=== PATIENT | male | born 1955 | race Caucasian/White ===

== ENCOUNTER → 2018-08-03 | Outpatient (CLI) | payer MEDICARE, BC ==
--- NOTE | 2018-08-03 09:46 | US ---
EXAMINATION TYPE: US duplex aorta DATE OF EXAM: 08/03/2018 COMPARISON: NONE CLINICAL HISTORY: AAA Z13.9. EXAM MEASUREMENTS: Abdominal Aorta: Proximal: 1.9cm Mid: 2.1cm Distal: 1.8cm Bifurcation: 1.1cm 1cm Small portion of proximal obscured by overlying bowel gas. Large left kidney cyst noted measuring 8.8 x 8.9 cm IMPRESSION: 1. A portion of the proximal aorta is obscured by bowel gas. Remaining portions measure within normal limits for size with no diagnostic evidence of aneurysm. 2. Large left renal cyst.
== END ==
LOC: RADUSWWP 08:12
PROVIDERS: ATTEND Family Medicine
DX: N28.1 Cyst of kidney, acquired (principal)
CPT/HCPCS: 93979

== ENCOUNTER → 2018-09-14 | Outpatient (CLI) | payer MEDICARE, BC ==
--- NOTE | 2018-09-14 21:23 | CONS ---
CONSULTATION ADDENDUM TO CONSULTATION: DATE OF SERVICE: 09/14/2018 I checked the patient's CPAP unit. CPAP pressure is 11 cm of water. Usage is 100% of nights, and 29/30 nights for more than 4 hours. Average usage is 7.3 hours for the last month. For the last year, usage is 336/365 nights for more than 4 hours, which is good compliance. Pressure is 11 cm of water. Apnea-hypopnea index reading for the whole year is only 3.5, which is within normal range. For the year, highest leak factor was 52 L/minute, but for the last month, leak is 35 L/minute, which is acceptable. Humidifier is at the level of 3. Possibly the humidifier does not work. PLAN: CPAP unit has to be checked, fixed or replaced. MMODL / IJN: [id number] /
--- NOTE | 2018-09-14 21:29 | CONS ---
CONSULTATION DATE OF SERVICE: 09/14/2018 63-year-old gentleman who has [facility] for obstructive sleep apnea-hypopnea syndrome. HISTORY OF PRESENT ILLNESS/SLEEP WAKE EVALUATION: The patient has history of obstructive sleep apnea for about 10 years. Last sleep study was done in 2014. The patient continued to use his CPAP equipment successfully every night for the whole night. Recently, he developed some problems with the humidifier in his CPAP unit. SLEEP SCHEDULE: He is a usual sleep schedule from 10 p.m. to 6 a.m. basically 7 days a week. FALLING ASLEEP: No problems with falling asleep. No TV in bedroom. DURING SLEEP: He usually sleeps on the side position. According to his family, he does not snore with the usage of the CPAP. He wakes up once at night with nocturia. DURING THE DAY/SLEEP WAKE EVALUATION: No significant excessive daytime sleepiness. Normal Sleepiness Scale is 3. Maintenance of wakefulness test in the past, was normal passed the test. PAST MEDICAL HISTORY: Positive for hypertension, diabetes mellitus, acid reflux, coronary artery disease, hyperlipidemia. PAST SURGICAL HISTORY: Stent insertion to coronary arteries in 2008, back surgery 2003. MEDICATIONS: Lisinopril, hydrochlorothiazide, omeprazole, Cialis, atorvastatin, metformin, metoprolol, glimepiride, aspirin, fish oil. SOCIAL HISTORY: Negative for smoking or using alcohol. FAMILY HISTORY: Headaches, cancer, diabetes, hypertension, heart problems, hyperlipidemia. REVIEW OF SYSTEMS: Mostly negative. No significant amount of awakenings from sleep. No snoring. No sleepiness during the day. PHYSICAL EXAM: gentleman without distress. BP 115/79, HR 66, RR 16, height 6 feet 1 inch, weight 220 pounds, BMI 29, temperature 98.0, oxygen saturation at room air 94%. HEENT: Oropharynx extremely low position of soft palate, Mallampati 4, wide neck is 17 inches in circumference. Neck Supple, no JVD. Thyroid is not palpable. LUNGS Clear to percussion and to auscultation. Good air exchange. No wheezing or rhonchi. HEART S1, S2 regular. No murmurs, gallops, or rubs. ABDOMEN: Soft and nontender. Bowel sounds are present. No organomegaly appreciated. EXTREMITIES No clubbing or cyanosis. MEMBERSHIP SECRETARY Awake, alert, and oriented X3. Cranial nerves 2 to 7 intact. There is no fasciculation or atrophy. noted. No focal deficits observed. IMPRESSION: 1. Obstructive sleep apnea-hypopnea syndrome for many years. The patient continued to use CPAP equipment every night. Demonstrated great compliance with treatment, benefitting from treatment. Normal respiration by the reading of apnea-hypopnea index from the machine. Low position of soft palate. Wide neck. 2. Hypertension. 3. Coronary artery disease, status post stent insertion. 4. Diabetes mellitus. 5. Acid reflux. 6. Hyperlipidemia. PLAN: 1. Patient will continue to use CPAP equipment every night for the whole night. 2. Watching weight. 3. Prescription for all necessary CPAP supplies. The patient needs to replace heated humidifier in his unit. 4. Precautions related to driving. No driving if feeling sleepiness. 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 He is aware about civil and criminal liability for unsafe driving. Thank you very much for allowing me to participate in management of your patient. Sincerely, Romel Peguero MD, PhD, FAASM Diplomat of [place] M[employer] T[employer] [facility] [place] MMODL / FIORDALIZAN: [id number] /
== END | disposition home or self-care (01) ==
LOC: SLEEP 14:50
PROVIDERS: ATTEND Internal Medicine
DX: G47.33 Obstructive sleep apnea (adult) (pediatric) (principal); R35.1 Nocturia; I10 Essential (primary) hypertension; I25.10 Atherosclerotic heart disease of native coronary artery without angina pectoris; E11.9 Type 2 diabetes mellitus without complications; K21.9 Gastro-esophageal reflux disease without esophagitis; E78.5 Hyperlipidemia, unspecified; Z79.84 Long term (current) use of oral hypoglycemic drugs; Z99.89 Dependence on other enabling machines and devices; Z95.5 Presence of coronary angioplasty implant and graft; Z79.82 Long term (current) use of aspirin; Z79.899 Other long term (current) drug therapy
CPT/HCPCS: 99211

== ENCOUNTER 2019-10-20 09:34 | Inpatient (IN) | payer MEDICARE, BC ==
[2019-10-20] MEDS ORDERED: KETOROLAC 60 MG/2 ML VIAL IM STA (10:07)
[2019-10-20] MEDS ORDERED: DEXAMETHASONE SOD PHOSPHATE 10 MG/ML 1 ML VIAL IM STA (10:07)
[2019-10-20] MEDS ORDERED: ORPHENADRINE 30 MG/ML 2 ML VIAL IM STA (10:07)
[2019-10-20] MEDS ORDERED: RX INFO: IV CONTRAST WAS GIVEN 1 EACH MISC MISCELLANE PRN (10:18)
--- NOTE | 2019-10-20 10:26 | ED ---
Extremity Problem HPI - General Source: patient, RN notes reviewed, old records reviewed Mode of arrival: ambulatory Limitations: no limitations <Hanna Hawley - Last Filed: 10/20/19 13:49> <Renae Jernigan - Last Filed: 10/21/19 01:18> - General Chief complaint: Extremity Problem,Nontraumatic Stated complaint: left leg numbness Time Seen by Provider: 10/20/19 09:44 - History of Present Illness Initial comments: Patient is a 64-year-old male process returns today with left leg pain. Reports that shooting down the left leg into the foot. Initially thought it was related to a foot cramp her leg muscle cramp. He reports that it seemed that his foot was numb and he couldn't feel it. Patient reports that happened yesterday around 11:30 at night. He went to bed after the pain subsided. Patient states that he then was walking to get the paper and felt that his leg became more numb and worsening pain at that time and decided to come to the ER. Patient reports that while he's been reclining in the bed and his pain has diminished. Patient has a history of hypertension diabetes and previous MS. (Hanna Hawley) - Related Data Home Medications Medication Instructions Recorded Confirmed Ascorbic Acid [Vitamin C] 500 mg PO HS 10/20/19 10/20/19 Aspirin EC [Ecotrin Low Dose] 81 mg PO HS 10/20/19 10/20/19 Atorvastatin [Lipitor] 40 mg PO HS 10/20/19 10/20/19 Glimepiride [Amaryl] 1 mg PO BID-W/MEALS 10/20/19 10/20/19 Krill/Ralph-3/Dha/Epa/Lipids 1 cap PO DAILY 10/20/19 10/20/19 [Krill Oil 350 mg Softgel] Lisinopril-Hctz 20-12.5 mg 1 tab PO DAILY 10/20/19 10/20/19 [Zestoretic 20-12.5] Metoprolol Tartrate 25 mg PO BID 10/20/19 10/20/19 Multivit-Min/FA/Lycopen/Lutein 1 tab PO DAILY 10/20/19 10/20/19 [Centrum Silver Men Tablet] Omeprazole 20 mg PO DAILY 10/20/19 10/20/19 metFORMIN HCL 1,000 mg PO BID 10/20/19 10/20/19 Allergies Allergy/AdvReac Type Severity Reaction Status Date / Time No Known Allergies Allergy Verified 10/20/19 13:45 Review of Systems ROS Other: All systems not noted in ROS Statement are negative. <Hanna Hawley - Last Filed: 10/20/19 13:49> ROS Other: All systems not noted in ROS Statement are negative. <Renae Jernigan Shakir - Last Filed: 10/21/19 01:18> ROS Statement: Those systems with pertinent positive or pertinent negative responses have been documented in the HPI. Past Medical History Past Medical History: Hyperlipidemia, Hypertension, Myocardial Infarction (MS) History of Any Multi-Drug Resistant Organisms: None Reported Past Surgical History: Back Surgery Past Psychological History: No Psychological Hx Reported Smoking Status: Never smoker Past Alcohol Use History: None Reported Past Drug Use History: None Reported <Hanna Hawley - Last Filed: 10/20/19 13:49> General Exam Limitations: no limitations General appearance: alert, in no apparent distress Head exam: Present: atraumatic, normocephalic, normal inspection Eye exam: Present: normal appearance, PERRL, EOMI. Absent: scleral icterus, conjunctival injection, periorbital swelling ENT exam: Present: normal exam, mucous membranes moist Neck exam: Present: normal inspection. Absent: tenderness, meningismus, lymphadenopathy Respiratory exam: Present: normal lung sounds bilaterally. Absent: respiratory distress, wheezes, rales, rhonchi, stridor Cardiovascular Exam: Present: regular rate, normal rhythm, normal heart sounds. Absent: systolic murmur, diastolic murmur, rubs, gallop, clicks GI/Abdominal exam: Present: soft, normal bowel sounds. Absent: distended, tenderness, guarding, rebound, rigid Extremities exam: Present: normal inspection, full ROM, normal capillary refill, other (Patient's left lower extremity is cool to touch. Unable to auscultate dorsalis pedis and posterior tibial pulse on Doppler ultrasound on the left lower extremity. This is easily obtained on the right.). Absent: tenderness, pedal edema, joint swelling, calf tenderness Back exam: Present: normal inspection Neurological exam: Present: alert, oriented X3, CN II-XII intact Psychiatric exam: Present: normal affect, normal mood Skin exam: Present: warm, dry, intact, normal color. Absent: rash <MariseljosejanaeHanna - Last Filed: 10/20/19 13:49> - General Exam Comments Initial Comments: 64-year-old male. Alert and oriented 3. (NorahHanna cardoso) Course Vital Signs 10/20/19 09:38 Temperature 98 F Pulse Rate 67 Respiratory 18 Rate Blood Pressure 116/79 O2 Sat by Pulse 100 Oximetry Medical Decision Making - Lab Data Result diagrams: 10/20/19 10:25 10/20/19 10:25 <NorahHanna cardoso - Last Filed: 10/20/19 13:49> - Lab Data Result diagrams: 10/21/19 00:24 10/20/19 16:48 <Renae Jernigan - Last Filed: 10/21/19 01:18> - Medical Decision Making Patient is a pleasant 64-year-old male who presents emergency department today with left leg pain starting at 11:00 last night numbness and tingling to left leg. He reports that the pain seemed to be intermittent. And when he was walking to the get the paper today the pain became more severe. Exam he does have a slightly cooler left lower extremity compared to the right. Unable to p alpate or auscultate a Doppler pulse and dorsalis pedis or posterior tibial pulse on the left leg. These are easily palpated and heard on the right leg. With the concern for decreased pulse Patient went to CT MANUEL of the lower extremity. There is evidence of femoral artery occlusion with collateral vessel development. He does have somewhat diminished capillary refill and the inhaler left lower extremity. At this time Patient started on IV heparin and we [place] That Dr. Dukes. Recommended Admission with Heparin Drip and ABIs Will Be Completed. Patient Will Be Admitted to Medicine with Consult to Dr. Dukes. Discussed the Case with Dr. Jernigan. (Hanna Hawley) I was available for consultation in the emergency department. The history and physical exam were done by the midlevel provider. I was consulted for this patients care. I reviewed the case with the midlevel provider and based on their presentation of the patient, I agree with the assessment, medical decision making and plan of care as documented. I discussed the case with Dr. Fleming and Dr. Dukes. Patient started on heparin gtt, made NPO and taken to OR with Dr. Dukes. Chart was dictated using [employer] dictation software. Attempts were made to correct any dictation errors however some typographical errors may persist. Patient was seen during a national state of emergency due to the Covid-19 pandem ic. (Renae Jernigan) - Lab Data Lab Results 10/20/19 10/20/19 10/20/19 Range/Units 10:25 10:25 10:25 WBC 5.8 (3.8-10.6) k/uL RBC 4.72 (4.30-5.90) m/uL Hgb 13.6 (13.0-17.5) gm/dL Hct 40.9 (39.0-53.0) % MCV 86.6 (80.0-100.0) fL MCH 28.8 (25.0-35.0) pg MCHC 33.3 (31.0-37.0) g/dL RDW 12.8 (11.5-15.5) % Plt Count 258 (150-450) k/uL Neutrophils % 74 % Lymphocytes % 17 % Monocytes % 5 % Eosinophils % 2 % Basophils % 0 % Neutrophils # 4.3 (1.3-7.7) k/uL Lymphocytes # 1.0 (1.0-4.8) k/uL Monocytes # 0.3 (0-1.0) k/uL Eosinophils # 0.1 (0-0.7) k/uL Basophils # 0.0 (0-0.2) k/uL PT 10.5 (9.0-12.0) sec INR 1.0 (<1.2) APTT 22.3 (22.0-30.0) sec Fibrinogen (200-500) mg/dL Sodium 136 L (137-145) mmol/L Potassium 4.5 (3.5-5.1) mmol/L Chloride 100 (98-107) mmol/L Carbon Dioxide 26 (22-30) mmol/L Anion Gap 10 mmol/L BUN 20 (9-20) mg/dL Creatinine 1.05 (0.66-1.25) mg/dL Est GFR (CKD-EPI)AfAm 86 (>60 ml/min/1.73 sqM) Est GFR (CKD-EPI)NonAf 74 (>60 ml/min/1.73 sqM) Glucose 141 H (74-99) mg/dL Lactic Ac Sepsis Rflx Plasma Lactic Acid Bossman (0.7-2.0) mmol/L Calcium 9.4 (8.4-10.2) mg/dL Total Bilirubin 0.5 (0.2-1.3) mg/dL AST 29 (17-59) U/L ALT 44 (4-49) U/L Alkaline Phosphatase 76 (38-126) U/L C-Reactive Protein 30.5 H (<10.0) mg/L Total Protein 7.0 (6.3-8.2) g/dL Albumin 3.9 (3.5-5.0) g/dL Blood Type Confirm 10/20/19 10/20/19 10/20/19 Range/Units 10:25 10:25 10:25 WBC (3.8-10.6) k/uL RBC (4.30-5.90) m/uL Hgb (13.0-17.5) gm/dL Hct (39.0-53.0) % MCV (80.0-100.0) fL MCH (25.0-35.0) pg MCHC (31.0-37.0) g/dL RDW (11.5-15.5) % Plt Count (150-450) k/uL Neutrophils % % Lymphocytes % % Monocytes % % Eosinophils % % Basophils % % Neutrophils # (1.3-7.7) k/uL Lymphocytes # (1.0-4.8) k/uL Monocytes # (0-1.0) k/uL Eosinophils # (0-0.7) k/uL Basophils # (0-0.2) k/uL PT (9.0-12.0) sec INR (<1.2) APTT (22.0-30.0) sec Fibrinogen 517 H (200-500) mg/dL Sodium (137-145) mmol/L Potassium (3.5-5.1) mmol/L Chloride (98-107) mmol/L Carbon Dioxide (22-30) mmol/L Anion Gap mmol/L BUN (9-20) mg/dL Creatinine (0.66-1.25) mg/dL Est GFR (CKD-EPI)AfAm (>60 ml/min/1.73 sqM) Est GFR (CKD-EPI)NonAf (>60 ml/min/1.73 sqM) Glucose (74-99) mg/dL Lactic Ac Sepsis Rflx Plasma Lactic Acid Bossman 2.5 H* (0.7-2.0) mmol/L Calcium (8.4-10.2) mg/dL Total Bilirubin (0.2-1.3) mg/dL AST (17-59) U/L ALT (4-49) U/L Alkaline Phosphatase (38-126) U/L C-Reactive Protein (<10.0) mg/L Total Protein (6.3-8.2) g/dL Albumin (3.5-5.0) g/dL Blood Type Confirm B Positive 10/20/19 Range/Units 11:15 WBC (3.8-10.6) k/uL RBC (4.30-5.90) m/uL Hgb (13.0-17.5) gm/dL Hct (39.0-53.0) % MCV (80.0-100.0) fL MCH (25.0-35.0) pg MCHC (31.0-37.0) g/dL RDW (11.5-15.5) % Plt Count (150-450) k/uL Neutrophils % % Lymphocytes % % Monocytes % % Eosinophils % % Basophils % % Neutrophils # (1.3-7.7) k/uL Lymphocytes # (1.0-4.8) k/uL Monocytes # (0-1.0) k/uL Eosinophils # (0-0.7) k/uL Basophils # (0-0.2) k/uL PT (9.0-12.0) sec INR (<1.2) APTT (22.0-30.0) sec Fibrinogen (200-500) mg/dL Sodium (137-145) mmol/L Potassium (3.5-5.1) mmol/L Chloride (98-107) mmol/L Carbon Dioxide (22-30) mmol/L Anion Gap mmol/L BUN (9-20) mg/dL Creatinine (0.66-1.25) mg/dL Est GFR (CKD-EPI)AfAm (>60 ml/min/1.73 sqM) Est GFR (CKD-EPI)NonAf (>60 ml/min/1.73 sqM) Glucose (74-99) mg/dL Lactic Ac Sepsis Rflx Y Plasma Lactic Acid Bossman (0.7-2.0) mmol/L Calcium (8.4-10.2) mg/dL Total Bilirubin (0.2-1.3) mg/dL AST (17-59) U/L ALT (4-49) U/L Alkaline Phosphatase (38-126) U/L C-Reactive Protein (<10.0) mg/L Total Protein (6.3-8.2) g/dL Albumin (3.5-5.0) g/dL Blood Type Confirm 10/20/19 12:21 EKG performed at 11:56 AM shows normal sinus rhythm possible inferior infarct age undetermined. Anterior infarct age undetermined. Abnormal EKG. Ventric ular rate of 63 bpm. Intervals 160 ms. QS duration is 90 ms. QT QTc is 408/417 ms. (Hanna Hawley) Critical Care Time Critical Care Time: Yes <Renae Jernigan - Last Filed: 10/21/19 01:18> Critical Care Time: 32 minutes (Renae Jernigan) Disposition Is patient prescribed a controlled substance at d/c from ED?: No Time of Disposition: 13:52 <Hanna Hawley - Last Filed: 10/20/19 13:49> <Renae Jernigan - Last Filed: 10/21/19 01:18> Clinical Impression: Femoral artery occlusion, left Disposition: ADMITTED IP TO THIS HOSP Condition: Stable
[2019-10-20 10:50] LABS: Basophils % (A) 0 %; Eosinophils # (A) 0.1 k/uL (0-0.7); Eosinophils % (A) 2 %; HCT 40.9 % (39.0-53.0); HGB 13.6 gm/dL (13.0-17.5); Lymphocytes % (A) 17 %; MCH 28.8 pg (25.0-35.0); MCHC 33.3 g/dL (31.0-37.0); MCV 86.6 fL (80.0-100.0); Mean Platelet Volume 6.9; Monocytes # (A) 0.3 k/uL (0-1.0); Monocytes % (A) 5 %; Neutrophils # (A) 4.3 k/uL (1.3-7.7); Neutrophils % (A) 74 %; Platelet Count 258 k/uL (150-450); RBC 4.72 m/uL (4.30-5.90); RDW 12.8 % (11.5-15.5); WBC 5.8 k/uL (3.8-10.6)
[2019-10-20 11:02] LABS: Albumin 3.9 g/dL (3.5-5.0); C Reactive Protein 30.5 mg/L (<10.0); Calcium 9.4 mg/dL (8.4-10.2); Partial Thromboplastin Time 22.3 sec (22.0-30.0); Potassium 4.5 mmol/L (3.5-5.1); Prothrombin Time 10.5 sec (9.0-12.0); Total Bilirubin 0.5 mg/dL (0.2-1.3)
[2019-10-20] MEDS ORDERED: HEPARIN SODIUM,PORCINE 10,000 UNIT/ML 1 ML VIAL IV ONE (11:56)
[2019-10-20] MEDS: HEPARIN SOD,PORK IN 0.45% NACL 25,000 UNIT in 0.45% NACL 1 250ML.BAG IV SCH (12:19)
--- NOTE | 2019-10-20 13:05 | CT ---
EXAMINATION TYPE: CT angio lower extremity LT DATE OF EXAM: 10/20/2019 12:20 PM COMPARISON: None. HISTORY: Decreased left foot pulse CT DLP: 1253.1 mGycm Automated exposure control for dose reduction was used. TECHNIQUE: Performed without and with IV Contrast, patient injected with 100 ml mL of Isovue 370. Helical acqui sition through the lower abdomen, pelvis and lower legs was obtained without intravenous contrast. Th e data was reformatted in axial, coronal and sagittal projections. Volume rendered three-dimensional images were also obtained. . FINDINGS: There is a large, 9 cm cystic lesion seen arising from the lower pole of the left kidney. T his was present on a previous CT scan of the abdomen. There is a smaller, 3.6 cm cyst seen arising fr om the lower pole of the right kidney. The common iliacs as well as the internal and external iliac arteries are patent. The left external i liac artery is occluded at the junction with the common femoral artery. The deep femoral artery is re constituted via collaterals. The popliteal artery is partially reconstituted in the abductor canal vi a collaterals. There is three-vessel runoff initially. Both anterior tibial and peroneal artery are patent to the an kle. The posterior tibial artery attenuates in the mid calf. IMPRESSION: 1. 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 2. RECONSTITUTED DISTAL VESSELS WITH AN ANTERIOR TIBIAL AND PERONEAL ARTERIES PATENT TO THE ANKLE AND THE POSTERIOR TIBIAL ARTERY ATTENUATING IN THE MID CALF. 3. BILATERAL RENAL CYSTS.
[2019-10-20] MEDS ORDERED: NALOXONE 0.4 MG/ML 1 ML VIAL IV PRN (13:53)
[2019-10-20] MEDS ORDERED: MORPHINE SULFATE 4 MG/ML SYRINGE IV PRN (13:53)
[2019-10-20] MEDS ORDERED: KETOROLAC 30 MG/ML 1 ML VIAL IVP PRN (13:53)
[2019-10-20] MEDS ORDERED: IBUPROFEN 400 MG TAB PO PRN (13:53)
[2019-10-20] MEDS ORDERED: ACETAMINOPHEN TAB 325 MG TAB PO PRN (13:53)
--- NOTE | 2019-10-20 14:00 | P.HPIM ---
History of Present Illness This is a pleasant 64 years old female with past medical history of hyperlipidemia, hypertension, type 2 diabetes and coronary artery disease status post stent and the heart about 7-10 years ago he follows all Dr. Toure at [facility] and his PCP is Dr. Palomino. Presents with left leg pain and decreased sensation which happened yesterday evening at 11 PM but his pain subsided and he went to sleep well, even this morning he woke up with eased symptoms however as the day went on he had this clinic pain came back associated with decreased sensation and difficulty walking so he decided to come to emergency room. In the emergency room to receive Toradol, started on heparin drip and Decadron and his pain subsided now is like 0/10 compared to 10/10 felt like deep pain on admission. He can move his toes however his left leg felt colder than the right leg. As per staff Dr. Dukes has been contacted and she was to take him to cardiac cath with a recommendation to start him on heparin drip and admitted under medicine service for now He says he never smoked, no alcohol or illicit drugs. Vitals are stable.Labs including CBC, INR, BMP and liver enzymes were unremarkable, lactic acid is elevated at 2.5 Review of Systems CONSTITUTIONAL: No fever, no malaise, no fatigue. HEENT: No recent visual problems or hearing problems. Denied any sore throat. CARDIOVASCULAR: No orthopnea, PND, no palpitations, no syncope. PULMONARY: No shortness of breath, no cough, no hemoptysis. GASTROINTESTINAL: No diarrhea, no nausea, no vomiting, no abdominal pain. Normoactive bowel sounds. NEUROLOGICAL: No headaches, no weakness, no numbness. HEMATOLOGICAL: Denies any bleeding or petechiae. GENITOURINARY: Denies any burning micturition, frequency, or urgency. ENDOCRINE: Denies any polyuria or polydipsia. Past Medical History Past Medical History: Hyperlipidemia, Hypertension, Myocardial Infarction (DC) History of Any Multi-Drug Resistant Organisms: None Reported Past Surgical History: Back Surgery Past Psychological History: No Psychological Hx Reported Smoking Status: Never smoker Past Alcohol Use History: None Reported Past Drug Use History: None Reported Medications and Allergies Allergies Allergy/AdvReac Type Severity Reaction Status Date / Time No Known Allergies Allergy Verified 10/20/19 09:42 Physical Exam Vitals: Vital Signs Temp Pulse Resp BP Pulse Ox 10/20/19 09:38 98 F 67 18 116/79 100 Intake and Output 10/19/19 10/20/19 10/20/19 22:59 06:59 14:59 Other: Weight 94.801 kg GENERAL: The patient is alert and oriented x3, not in any acute distress. Well developed, well nourished. HEENT: Pupils are round and equally reacting to light. EOMI. No scleral icterus. No conjunctival pallor. Normocephalic, atraumatic. No pharyngeal erythema. No thyromegaly. CARDIOVASCULAR: S1 and S2 present. No murmurs, rubs, or gallops. PULMONARY: Chest is clear to auscultation, no wheezing or crackles. ABDOMEN: Soft, nontender, nondistended, normoactive bowel sounds. No palpable organomegaly. MUSCULOSKELETAL: No joint swelling or deformity. -EXTREMITIES: No cyanosis, clubbing, or pedal edema. Left leg called, no tenderness, no swelling, no redness. Dorsalis pedis nonpalpable bilaterally NEUROLOGICAL: Gross neurological examination did not reveal any focal deficits. SKIN: No rashes. No petechiae Results CBC & Chem 7: 10/20/19 10:25 10/20/19 10:25 Labs: Abnormal Lab Results - Last 24 Hours (Table) 10/20/19 10/20/19 Range/Units 10:25 10:25 Sodium 136 L (137-145) mmol/L Glucose 141 H (74-99) mg/dL Plasma Lactic Acid Bossman 2.5 H* (0.7-2.0) mmol/L C-Reactive Protein 30.5 H (<10.0) mg/L Assessment and Plan Assessment: Left leg pain, possible acute ischemia. Vascular surgery service were contacted and they will evaluate the patient Elevated lactic acid Hypertension Hyperlipidemia Plan: This is a pleasant 64 years old male who presents with left lower extremity was suspicious for acute ischemia. Continue with heparin drip. Consult Dr. Dukes from vascular surgery. Labs and medication were reviewed.. Continue same treatment. Continue with symptomatic treatment. Resume home medication. Monitor lytes and vitals. DVT and GI prophylaxis. Further recommendations of the clinical course of the patient DVT prophylaxis: heparin GI Prophylaxis: Ppi PT/OT: Pending Prognosis is guarded
--- NOTE | 2019-10-20 15:02 | P.GSCN ---
History of Present Illness Consult date: 10/20/19 History of present illness: The patient is a 64-year-old male with a past medical history of hyperlipidemia, hypertension, diabetes and coronary artery disease status post a stent. He began having left leg pain in the form of a charley horse last evening at around 11 PM. He was able to sleep some but when he woke up he had continued pain as well as decreased sensation and difficulty walking in the left lower extremity. He has never had anything like this before. Prior to this instance he has not had any issues with ambulation. He denies any claudication type pains or cramping. Currently the pain is about a 1 out of 10. He is able to move it freely without any significant issues. He denies any fevers, chills, nausea, vomiting, headaches, vision disturbances or issues otherwise. He has never had any issues with bleeding. He denies any history of cancer that he is aware of currently Review of Systems 14 point review of systems performed. Pertinent positives and negatives per the HPI Past Medical History Past Medical History: Hyperlipidemia, Hypertension, Myocardial Infarction ([place]) History of Any Multi-Drug Resistant Organisms: None Reported Past Surgical History: Back Surgery Past Psychological History: No Psychological Hx Reported Smoking Status: Never smoker Past Alcohol Use History: None Reported Past Drug Use History: None Reported Medications and Allergies Home Medications Medication Instructions Recorded Confirmed Type Ascorbic Acid [Vitamin C] 500 mg PO HS 10/20/19 10/20/19 History Aspirin EC [Ecotrin Low Dose] 81 mg PO HS 10/20/19 10/20/19 History Atorvastatin [Lipitor] 40 mg PO HS 10/20/19 10/20/19 History Glimepiride [Amaryl] 1 mg PO BID-W/MEALS 10/20/19 10/20/19 History Krill/[place]-3/Dha/Epa/Lipids 1 cap PO DAILY 10/20/19 10/20/19 History [Krill Oil 350 mg Softgel] Lisinopril-Hctz 20-12.5 mg 1 tab PO DAILY 10/20/19 10/20/19 History [Zestoretic 20-12.5] Metoprolol Tartrate 25 mg PO BID 10/20/19 10/20/19 History Multivit-Min/FA/Lycopen/Lutein 1 tab PO DAILY 10/20/19 10/20/19 History [Centrum Silver Men Tablet] Omeprazole 20 mg PO DAILY 10/20/19 10/20/19 History metFORMIN HCL 1,000 mg PO BID 10/20/19 10/20/19 History Allergies Allergy/AdvReac Type Severity Reaction Status Date / Time No Known Allergies Allergy Verified 10/20/19 13:45 Surgical - Exam Vital Signs Temp Pulse Resp BP Pulse Ox 98 F 67 18 116/79 100 10/20/19 09:38 10/20/19 09:38 10/20/19 09:38 10/20/19 09:38 10/20/19 09:38 The patient is a pleasant and cooperative male in no acute distress. HEENT is normocephalic, atraumatic, excellent motion intact. Neck is supple, trachea is midline. Heart is regular in rate and rhythm at this time. Lungs are clear bilaterally. Abdomen soft, nontender and nondistended. He has palpable radial pulses bilaterally he has palpable femoral pulses, right greater than left. He has palpable posterior tibial pulse on the right. Multiphasic signals on the right at the DP and PT. The foot is warm. On the left, no audible DP or PT signals. Decreased temperature. Slightly Decreased sensation, motor intact. Delayed capillary refill. Normal mood and affect. Cranial nerves II through XII grossly intact. Skin without rashes. No significant bruising. Results Computed tomography scan is reviewed. There appears to be thrombus in the iliac as well as through the common femoral artery. The profunda appears patent. There are portions of the superficial femoral artery with filling defects as well. There is reconstitution with 3 vessels below the knee. Arterial ultrasound in progress upon evaluation, per the tach there is no popliteal or DP/PT signal on the left. - Labs 10/20/19 10:25 10/20/19 10:25 Abnormal Lab Results - Last 24 Hours (Table) 10/20/19 10/20/19 10/20/19 Range/Units 10:25 10:25 10:25 Fibrinogen 517 H (200-500) mg/dL Sodium 136 L (137-145) mmol/L Glucose 141 H (74-99) mg/dL Plasma Lactic Acid Bossman 2.5 H* (0.7-2.0) mmol/L C-Reactive Protein 30.5 H (<10.0) mg/L 10/20/19 Range/Units 13:45 Fibrinogen (200-500) mg/dL Sodium (137-145) mmol/L Glucose (74-99) mg/dL Plasma Lactic Acid Bossman 2.9 H* (0.7-2.0) mmol/L C-Reactive Protein (<10.0) mg/L Diabetes panel 10/20/19 Range/Units 10:25 Sodium 136 L (137-145) mmol/L Potassium 4.5 (3.5-5.1) mmol/L Chloride 100 (98-107) mmol/L Carbon Dioxide 26 (22-30) mmol/L BUN 20 (9-20) mg/dL Creatinine 1.05 (0.66-1.25) mg/dL Glucose 141 H (74-99) mg/dL Calcium 9.4 (8.4-10.2) mg/dL AST 29 (17-59) U/L ALT 44 (4-49) U/L Alkaline Phosphatase 76 (38-126) U/L Total Protein 7.0 (6.3-8.2) g/dL Albumin 3.9 (3.5-5.0) g/dL Calcium panel 10/20/19 Range/Units 10:25 Calcium 9.4 (8.4-10.2) mg/dL Albumin 3.9 (3.5-5.0) g/dL Pituitary panel 10/20/19 Range/Units 10:25 Sodium 136 L (137-145) mmol/L Potassium 4.5 (3.5-5.1) mmol/L Chloride 100 (98-107) mmol/L Carbon Dioxide 26 (22-30) mmol/L BUN 20 (9-20) mg/dL Creatinine 1.05 (0.66-1.25) mg/dL Glucose 141 H (74-99) mg/dL Calcium 9.4 (8.4-10.2) mg/dL Adrenal panel 10/20/19 Range/Units 10:25 Sodium 136 L (137-145) mmol/L Potassium 4.5 (3.5-5.1) mmol/L Chloride 100 (98-107) mmol/L Carbon Dioxide 26 (22-30) mmol/L BUN 20 (9-20) mg/dL Creatinine 1.05 (0.66-1.25) mg/dL Glucose 141 H (74-99) mg/dL Calcium 9.4 (8.4-10.2) mg/dL Total Bilirubin 0.5 (0.2-1.3) mg/dL AST 29 (17-59) U/L ALT 44 (4-49) U/L Alkaline Phosphatase 76 (38-126) U/L Total Protein 7.0 (6.3-8.2) g/dL Albumin 3.9 (3.5-5.0) g/dL Assessment and Plan Assessment: #1 acute ischemia left lower extremity #2 left lower extremity pain secondary to above #3 coronary artery disease, history of [place] with stent placement #4 hyperlipidemia #5 hypertension #6 diabetes Plan: At this point after reviewing the patient's history and physical as well as the imaging I do believe he would best benefit from an angiogram with thrombolysis versus thrombectomy. Risks and benefits of going forward with thrombolytics were discussed with the patient and the family at the bedside including but not limited to bleeding, intracranial hemorrhage, infection. It was discussed and that his limb is in danger due to the lack of blood flow at this time. He seemingly understood all risks and benefits and wanted to go forth with interventions. On-call team has been called in. Patient was discussed with admitting physician. Contact cardiology. Patient likely just needs an echo wade ng with thromboembolic workup. This would include CT angiogram of the thoracic and abdominal aortas. Given recent contrast load and imaging, would continue to monitor lab work and continue IV fluids prior to further imaging
[2019-10-20] MEDS ORDERED: IV FLUID CONTINUATION 350 ML IV ONE (15:17)
[2019-10-20] MEDS ORDERED: MIDAZOLAM 2 MG/2 ML VIAL IV ONE (15:27)
[2019-10-20] MEDS ORDERED: LIDOCAINE 1% INJ 10MG/ML (20 ML MDV) SQ ONE ×2 (15:28)
[2019-10-20] MEDS ORDERED: HEPARIN SOD,PORK IN 0.45% NACL 25,000 UNIT in 0.45% NACL 1 250ML.BAG IV ONE (15:48)
[2019-10-20] MEDS ORDERED: ALTEPLASE 2 MG VIAL (CATHFLO) IV ONE (16:00)
[2019-10-20] MEDS ORDERED: LIDOCAINE URO-JET JELLY 2% 5 ML KIT ONE (16:04)
[2019-10-20] MEDS ORDERED: HYDROmorphone 1 MG/ML 1 ML SYRINGE IVP ONE (16:06)
[2019-10-20] MEDS: ALTEPLASE 10 MG in SODIUM CHLORIDE 0.9% 100 ML IA ONE ×2 (16:10→23:41)
--- NOTE | 2019-10-20 16:17 | P.OP ---
Date of Procedure: 10/20/19 Description of Procedure: Preoperative diagnosis: [Acute limb ischemia left lower extremity] Postoperative diagnosis: Same Procedure: [#1 ultrasound-guided right common femoral artery access #2 selective left lower extremity angiogram second order #3 initiation of thrombolytics #4 moderate conscious sedation 23 minutes] Surgeon: Maylin Dukes D.O. EBL: [Minimal] IV fluids: [See records] Urine output: [None initially measured, Dukes placed post procedure] Drains: [None] Complications: [None immediately apparent] Condition: [Stable to ICU] Operative indication and findings: [The patient is a 64-year-old male with an acute onset of left lower extremity pain and subsequent loss of sensation. He s till is motor intact. CT imaging revealed occlusions at the level of the common femoral artery with thrombus through the superficial femoral artery. Risks and benefits of going forward with an angiogram and thrombolysis were discussed with the patient seemingly understood and are willing to proceed.] Procedure in detail: [The patient was taken to the special suite and placed in supine position. Bilateral groins are prepped and draped in usual sterile fashion. A preprocedure timeout was performed, all parties are in agreement. The ultrasound was utilized in the right common femoral artery was identified. The skin overlying artery was anesthetized with lidocaine. The Cook needle was used to access the artery with return of pulsatile blood. Seldinger technique was used to place a 6-[place] sheath. Up & Over catheter was used along with the wire and a left lower extremity anterior was performed revealing occlusion of the common femoral artery outflow the inguinal ligament. There was reconstitution of the superficial femoral artery. Catheters and wires were utilized to place the catheter in the distal superficial femoral artery and a further images taken down the leg There was flow through the leg down to the knee with 2 vessels noted below the knee. No significant calcification or flow limiting stenosis. At that point a 20 cm catheter was placed with the infusion overlying the areas of the occlusion. The wire was removed a dose of TPA was given through the catheter. The catheter was sutured in place. Dressings were placed. The patient was transferred to ICU in stable condition having tolerated the procedure well. Plan for rechecked tomorrow]
[2019-10-20] MEDS ORDERED: IOPAMIDOL-250 100ML BTL INTRAARTER ONE ×2 (16:20)
[2019-10-20 16:38] LABS: Glucose,Whole Blood 172 mg/dL (75-99)
[2019-10-20 17:18] LABS: Basophils % (A) 0 %; Eosinophils % (A) 1 %; HGB 12.9 gm/dL (13.0-17.5); Lymphocytes # (A) 0.7 k/uL (1.0-4.8); Lymphocytes % (A) 13 %; MCHC 32.2 g/dL (31.0-37.0); MCV 87.1 fL (80.0-100.0); Mean Platelet Volume 7.2; Monocytes # (A) 0.1 k/uL (0-1.0); Monocytes % (A) 2 %; Neutrophils # (A) 4.7 k/uL (1.3-7.7); Neutrophils % (A) 84 %; Platelet Count 274 k/uL (150-450); RDW 12.8 % (11.5-15.5); WBC 5.6 k/uL (3.8-10.6)
[2019-10-20 17:37] LABS: Partial Thromboplastin Time 86.3 sec (22.0-30.0)
[2019-10-20] MEDS: SODIUM CHLORIDE 0.9% 1,000 ML IV SCH (17:54)
[2019-10-20] MEDS: METOPROLOL TARTRATE 25 MG TAB PO SCH (19:56)
[2019-10-20] MEDS: ATORVASTATIN 40 MG TAB PO SCH (19:56)
[2019-10-20] MEDS: ASPIRIN 81 MG PO SCH (19:56)
[2019-10-20 20:00] LABS: Glucose,Whole Blood 229 mg/dL (75-99)
[2019-10-20] MEDS: INSULIN ASPART (NovoLOG) 100 UNIT/ML VIAL SQ SCH (20:01)
[2019-10-20 20:54] LABS: Basophils % (A) 0 %; Eosinophils % (A) 1 %; HCT 39.5 % (39.0-53.0); HGB 12.8 gm/dL (13.0-17.5); Lymphocytes # (A) 0.7 k/uL (1.0-4.8); Lymphocytes % (A) 9 %; MCH 28.4 pg (25.0-35.0); MCHC 32.3 g/dL (31.0-37.0); MCV 87.7 fL (80.0-100.0); Mean Platelet Volume 8.4; Monocytes # (A) 0.2 k/uL (0-1.0); Monocytes % (A) 2 %; Neutrophils # (A) 6.5 k/uL (1.3-7.7); Neutrophils % (A) 88 %; Platelet Count 253 k/uL (150-450); RBC 4.51 m/uL (4.30-5.90); RDW 12.7 % (11.5-15.5); WBC 7.4 k/uL (3.8-10.6)
[2019-10-21 00:52] LABS: Basophils % (A) 0 %; Eosinophils % (A) 0 %; HCT 37.8 % (39.0-53.0); HGB 12.5 gm/dL (13.0-17.5); Lymphocytes # (A) 0.9 k/uL (1.0-4.8); Lymphocytes % (A) 9 %; MCH 28.9 pg (25.0-35.0); MCHC 33.2 g/dL (31.0-37.0); MCV 87.3 fL (80.0-100.0); Mean Platelet Volume 7.7; Monocytes # (A) 0.4 k/uL (0-1.0); Monocytes % (A) 4 %; Neutrophils # (A) 7.9 k/uL (1.3-7.7); Neutrophils % (A) 86 %; Platelet Count 263 k/uL (150-450); RBC 4.33 m/uL (4.30-5.90); RDW 12.7 % (11.5-15.5); WBC 9.2 k/uL (3.8-10.6)
[2019-10-21] MEDS: HEPARIN SOD,PORK IN 0.45% NACL 25,000 UNIT in 0.45% NACL 1 250ML.BAG IV SCH ×2 (04:20→08:39)
[2019-10-21 05:29] LABS: Basophils % (A) 0 %; Eosinophils % (A) 0 %; HCT 38.5 % (39.0-53.0); HGB 12.5 gm/dL (13.0-17.5); Lymphocytes # (A) 1.1 k/uL (1.0-4.8); Lymphocytes % (A) 13 %; MCH 28.4 pg (25.0-35.0); MCHC 32.5 g/dL (31.0-37.0); MCV 87.4 fL (80.0-100.0); Mean Platelet Volume 7.7; Monocytes # (A) 0.5 k/uL (0-1.0); Monocytes % (A) 6 %; Neutrophils # (A) 6.8 k/uL (1.3-7.7); Neutrophils % (A) 81 %; Platelet Count 262 k/uL (150-450); RBC 4.41 m/uL (4.30-5.90); RDW 12.8 % (11.5-15.5); WBC 8.4 k/uL (3.8-10.6)
[2019-10-21 05:39] LABS: Albumin 3.2 g/dL (3.5-5.0); Calcium 8.8 mg/dL (8.4-10.2); Potassium 4.8 mmol/L (3.5-5.1); Total Bilirubin 0.3 mg/dL (0.2-1.3); Total Protein 6.1 g/dL (6.3-8.2)
[2019-10-21] MEDS: INSULIN ASPART (NovoLOG) 100 UNIT/ML VIAL SQ SCH ×4 (05:51→20:14)
[2019-10-21] MEDS: SODIUM CHLORIDE 0.9% 1,000 ML IV SCH ×2 (06:00→20:14)
[2019-10-21] MEDS: GLIMEPIRIDE 1 MG TAB PO SCH ×2 (07:58→18:15)
[2019-10-21] MEDS ORDERED: ALTEPLASE 10 MG in SODIUM CHLORIDE 0.9% 100 ML IA ONE (08:00)
[2019-10-21] MEDS: METOPROLOL TARTRATE 25 MG TAB PO SCH ×2 (08:17→20:07)
[2019-10-21] MEDS: LISINOPRIL-HCTZ 20-12.5 MG 1 EACH TAB PO SCH (08:40)
[2019-10-21] MEDS: PANTOPRAZOLE 40 MG/10 ML VIAL IV SCH (08:40)
--- NOTE | 2019-10-21 10:42 | P.CNPUL ---
History of Present Illness Consult date: 10/21/19 Chief complaint: leg pain History of present illness: 62-year-old male patient presented emergency with acute onset left lower extremity pain and loss in sensation. His motor function was intact. CT imaging revealed occlusion of the artery at the level of the common femoral artery and thrombus throughout the superficial femoral artery. The patient was taken to the [facility] and the patient underwent ultrasound-guided right common femoral artery access with insertion of a catheter and initiation of thrombolytic treatment. Following that, the patient was brought into the intensive care unit where frequent monitoring revealed that he started to regain some pulses in his dorsalis pedis and this morning there are Doppler signals. The patient is going to be taken back to the left for reevaluation today. He is doing well. He has no specific complaints. He has no history of any claudication or peripheral vascular disease pain no carotid artery disease. He can recall a remote history of MN many years back. 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 He is a nonsmoker. He has hyperlipidemia. He also has hypertension. He takes metformin for diabetes mellitus. Review of Systems Constitutional: Denies chills, Denies fever Eyes: denies blurred vision, denies bulging eye, denies decreased vision, denies diplopia, denies discharge, denies dry eye, denies irritation, denies itching, denies pain, denies photophobia, denies loss of peripheral vision, denies loss of vision, denies tunnel vision/blind spots Ears: deny: decreased hearing, ear discharge, earache, tinnitus Ears, nose, mouth and throat: Reports as per HPI Breasts: absent: as per HPI, gynecomastia Cardiovascular: Reports claudication Respiratory: Reports as per HPI Gastrointestinal: Reports as per HPI Genitourinary: Reports as per HPI Musculoskeletal: Reports as per HPI Musculoskeletal: absent: ankle pain, ankle stiffness, ankle swelling Integumentary: Denies pruritus, Denies rash Neurological: Reports as per HPI Psychiatric: Reports as per HPI Endocrine: Reports as per HPI Hematologic/Lymphatic: Reports as per HPI Allergic/Immunologic: Reports as per HPI Past Medical History Past Medical History: Coronary Artery Disease (CAD), Hyperlipidemia, Hypertension, Myocardial Infarction ([place]), Vascular Disorder Last Myocardial Infarction Date:: 2010 History of Any Multi-Drug Resistant Organisms: None Reported Past Surgical History: Back Surgery Past Anesthesia/Blood Transfusion Reactions: No Reported Reaction Past Psychological History: No Psychological Hx Reported Smoking Status: Never smoker Past Alcohol Use History: None Reported Past Drug Use History: None Reported Medications and Allergies Home Medications Medication Instructions Recorded Confirmed Type Ascorbic Acid [Vitamin C] 500 mg PO HS 10/20/19 10/20/19 History Aspirin EC [Ecotrin Low Dose] 81 mg PO HS 10/20/19 10/20/19 History Atorvastatin [Lipitor] 40 mg PO HS 10/20/19 10/20/19 History Glimepiride [Amaryl] 1 mg PO BID-W/MEALS 10/20/19 10/20/19 History Krill/[place]-3/Dha/Epa/Lipids 1 cap PO DAILY 10/20/19 10/20/19 History [Krill Oil 350 mg Softgel] Lisinopril-Hctz 20-12.5 mg 1 tab PO DAILY 10/20/19 10/20/19 History [Zestoretic 20-12.5] Metoprolol Tartrate 25 mg PO BID 10/20/19 10/20/19 History Multivit-Min/FA/Lycopen/Lutein 1 tab PO DAILY 10/20/19 10/20/19 History [Centrum Silver Men Tablet] Omeprazole 20 mg PO DAILY 10/20/19 10/20/19 History metFORMIN HCL 1,000 mg PO BID 10/20/19 10/20/19 History Allergies Allergy/AdvReac Type Severity Reaction Status Date / Time No Known Allergies Allergy Verified 10/20/19 13:45 Physical Exam Vitals: Vital Signs Temp Pulse Resp BP Pulse Ox 10/21/19 07:00 49 L 15 117/80 92 L 10/21/19 06:00 54 L 12 114/76 95 10/21/19 05:00 53 L 22 111/75 93 L 10/21/19 04:00 98 F 50 L 16 101/73 94 L 10/21/19 03:00 54 L 18 99/69 92 L 10/21/19 02:00 56 L 13 94/72 91 L 10/21/19 01:00 57 L 18 102/71 95 10/21/19 00:04 65 16 100/69 93 L 10/21/19 00:00 97.7 F 59 L 17 99/67 92 L 10/20/19 23:00 62 19 98/65 92 L 10/20/19 22:00 66 19 93/66 90 L 10/20/19 21:00 66 19 104/71 90 L 10/20/19 20:00 97.4 F L 66 15 105/74 94 L 10/20/19 19:00 74 19 93/70 90 L 10/20/19 18:00 69 17 93/72 90 L 10/20/19 17:33 98.8 F 71 17 122/84 95 10/20/19 15:40 98.0 F 76 18 126/80 99 10/20/19 09:38 98 F 67 18 116/79 100 Intake and Output 10/20/19 10/21/19 10/21/19 22:59 06:59 14:59 Intake Total 425 850 75 Output Total 580 620 200 Balance -155 230 -125 Intake: IV 425 600 75 Sodium Chloride 0.9% 1, 375 600 75 000 ml @ 75 mls/hr IV . [id number] AIDAN Rx#:[id number] Intake, IV Titration 250 Amount Heparin Sod,Pork in 0.45% 250 NaCl 25,000 unit In 0.45 % NaCl 1 250ml.bag @ 18 UNITS/KG/HR 17.064 mls/hr IV .[id number] AIDAN Rx#: [id number] Output: Urine 580 620 200 Other: Voiding Method Indwelling Catheter Indwelling Catheter Weight 96.2 kg 95.2 kg The patient appeared well nourished and normally developed. Vital signs as documented. Head exam is unremarkable. No scleral icterus or corneal arcus noted. Neck is without jugular venous distension, thyromegaly, or carotid bruits. Carotid upstrokes are brisk bilaterally. Lungs are clear to auscultation and percussion. Cardiac exam reveals the PMI to be normally sized and situated. Rhythm is regular. First and second heart sounds normal. No murmurs, rubs or gallops. Abdominal exam reveals normal bowel sounds, no masses, no organomegaly and no aortic enlargement. Extremities reveals a cold left foot compared to the right. There is positive Doppler signals in the dorsalis pedis this and the posterior tibialis and the popliteal in the left lower extremity. No cyanosis no mottling. No wounds. The groin area where the catheter is placed on the right is dry clean and intact and there is no hematoma formation. No edema. Examination of the skin revealed no evidence of significant rashes, suspicious appearing nevi or other concerning lesions. Neurologically the patient is awake and alert and there is no focal neurological deficit. Results - Laboratory Findings CBC and BMP: 10/21/19 04:57 10/21/19 04:57 ABG WBC 8.4 k/uL (3.8-10.6) 10/21/19 04:57 RBC 4.41 m/uL (4.30-5.90) 10/21/19 04:57 Hgb 12.5 gm/dL (13.0-17.5) L 10/21/19 04:57 Hct 38.5 % (39.0-53.0) L 10/21/19 04:57 MCV 87.4 fL (80.0-100.0) 10/21/19 04:57 MCH 28.4 pg (25.0-35.0) 10/21/19 04:57 MCHC 32.5 g/dL (31.0-37.0) 10/21/19 04:57 RDW 12.8 % (11.5-15.5) 10/21/19 04:57 Plt Count 262 k/uL (150-450) 10/21/19 04:57 Neutrophils % 81 % 10/21/19 04:57 Lymphocytes % 13 % 10/21/19 04:57 Monocytes % 6 % 10/21/19 04:57 Eosinophils % 0 % 10/21/19 04:57 Basophils % 0 % 10/21/19 04:57 Neutrophils # 6.8 k/uL (1.3-7.7) 10/21/19 04:57 Lymphocytes # 1.1 k/uL (1.0-4.8) 10/21/19 04:57 Monocytes # 0.5 k/uL (0-1.0) 10/21/19 04:57 Eosinophils # 0.0 k/uL (0-0.7) 10/21/19 04:57 Basophils # 0.0 k/uL (0-0.2) 10/21/19 04:57 PT 10.5 sec (9.0-12.0) 10/20/19 10:25 INR 1.0 (<1.2) 10/20/19 10:25 APTT 86.3 sec (22.0-30.0) H 10/20/19 16:48 Fibrinogen 476 mg/dL (200-500) 10/21/19 04:57 Sodium 134 mmol/L (137-145) L 10/21/19 04:57 Potassium 4.8 mmol/L (3.5-5.1) 10/21/19 04:57 Chloride 102 mmol/L (98-107) 10/21/19 04:57 Carbon Dioxide 23 mmol/L (22-30) 10/21/19 04:57 Anion Gap 9 mmol/L 10/21/19 04:57 BUN 26 mg/dL (9-20) H 10/21/19 04:57 Creatinine 1.05 mg/dL (0.66-1.25) 10/21/19 04:57 Est GFR (CKD-EPI)AfAm 86 (>60 ml/min/1.73 sqM) 10/21/19 04:57 Est GFR (CKD-EPI)NonAf 74 (>60 ml/min/1.73 sqM) 10/21/19 04:57 Glucose 108 mg/dL (74-99) H 10/21/19 04:57 POC Glucose (mg/dL) 229 mg/dL (75-99) H 10/20/19 19:58 POC Glu Grinder Set Up Operator Jig ID Deshaun Munoz 10/20/19 19:58 Lactic Ac Sepsis Rflx Y 10/20/19 21:13 Plasma Lactic Acid Bossman 1.7 mmol/L (0.7-2.0) 10/21/19 00:24 Calcium 8.8 mg/dL (8.4-10.2) 10/21/19 04:57 Total Bilirubin 0.3 mg/dL (0.2-1.3) 10/21/19 04:57 AST 20 U/L (17-59) 10/21/19 04:57 ALT 32 U/L (4-49) 10/21/19 04:57 Alkaline Phosphatase 68 U/L (38-126) 10/21/19 04:57 C-Reactive Protein 30.5 mg/L (<10.0) H 10/20/19 10:25 Total Protein 6.1 g/dL (6.3-8.2) L 10/21/19 04:57 Albumin 3.2 g/dL (3.5-5.0) L 10/21/19 04:57 PT/INR, D-dimer PT 10.5 sec (9.0-12.0) 10/20/19 10:25 INR 1.0 (<1.2) 10/20/19 10:25 Abnormal lab findings: Abnormal Labs 10/20/19 10/20/19 10/20/19 10:25 10:25 10:25 Hgb Hct Neutrophils # Lymphocytes # APTT Fibrinogen 517 H Sodium 136 L BUN Glucose 141 H POC Glucose (mg/dL) Plasma Lactic Acid Bossman 2.5 H* C-Reactive Protein 30.5 H Total Protein Albumin 10/20/19 10/20/19 10/20/19 13:45 16:37 16:48 Hgb Hct Neutrophils # Lymphocytes # APTT 86.3 H Fibrinogen 535 H Sodium BUN Glucose POC Glucose (mg/dL) 172 H Plasma Lactic Acid Bossman 2.9 H* C-Reactive Protein Total Protein Albumin 10/20/19 10/20/19 10/20/19 16:48 16:48 16:48 Hgb 12.9 L Hct Neutrophils # Lymphocytes # 0.7 L APTT Fibrinogen Sodium BUN 24 H Glucose POC Glucose (mg/dL) Plasma Lactic Acid Bossman 2.5 H* C-Reactive Protein Total Protein Albumin 10/20/19 10/20/19 10/20/19 19:58 20:37 20:37 Hgb 12.8 L Hct Neutrophils # Lymphocytes # 0.7 L APTT Fibrinogen Sodium BUN Glucose POC Glucose (mg/dL) 229 H Plasma Lactic Acid Bossman 3.1 H* C-Reactive Protein Total Protein Albumin 10/21/19 10/21/19 10/21/19 00:24 04:57 04:57 Hgb 12.5 L 12.5 L Hct 37.8 L 38.5 L Neutrophils # 7.9 H Lymphocytes # 0.9 L APTT Fibrinogen Sodium 134 L BUN 26 H Glucose 108 H POC Glucose (mg/dL) Plasma Lactic Acid Bossman C-Reactive Protein Total Protein 6.1 L Albumin 3.2 L Assessment and Plan Plan: 1 acute ischemic limb, left lower extremity, status post insertion of a right common femoral artery catheter with subsequent thrombolytic treatment. Patient is postop day #1. The patient had thrombosis of the left common femoral artery extending into the superficial femoral artery. No signs of any bleeding. Fibrinogen levels are being monitored. Hemoglobin is being monitored. There is positive Doppler significant left foot on today's evaluation the patient's pain has subsided. The exact cause for this event is not clear. Rule out embolic phenomena 2 lactic acidosis, improved with above-mentioned intervention 3 diabetes mellitus 4 hypertension 5 hyperlipidemia 6 history of coronary artery disease with previous [place] Plan Continue thrombolytic therapy intra-arterial and monitor the fibrinogen and a CBC and watch for any signs of bleeding The plan is to take the patient to the lab again for reevaluation possibly an angiogram Obtain echocardiogram Tight control control of cardiovascular risk factors including diabetes hypertension and hyperlipidemia and all medications have been resumed Consider hypercoagulable workup at a later stage if no clear explanation for his underlying, femoral artery thrombosis
--- NOTE | 2019-10-21 10:45 | CONS ---
CONSULTATION CHIEF COMPLAINT: Acute ischemic leg. Mr. Wagner is a 64-year-old gentleman with history of coronary artery disease status post prior angioplasty, hypertension, dyslipidemia, diabetes, who presented to hospital with sudden onset pain and inability to weight bear on the left leg. The patient underwent angiogram. The patient received thrombolytics and is currently on heparin and Cardiology has been consulted for cardiac evaluation. The patient denies any chest pain, difficulty in breathing or palpitations. There is no prior history of intermittent claudication. This morning we still cannot palpate his pulse over the left foot and it still appears cold to touch. I am going to obtain a 2D echo on him to evaluate his LV function to rule out a cardiac source for thromboembolic event. If necessary, we will consider a TASIA on him. PAST MEDICAL HISTORY: Significant for coronary artery disease status post angioplasty, hypertension, diabetes, dyslipidemia. CURRENT MEDICATIONS: Include aspirin, metformin, metoprolol, Zestoretic, Lipitor and Amaryl. ALLERGIES: There are no known drug allergies. FAMILY HISTORY: Negative for premature coronary artery disease. SOCIAL HISTORY: Negative for current smoking, ETOH abuse or drug abuse. REVIEW OF SYSTEMS: HEENT is unremarkable. Cardiac as described above. Respiratory as described above. GI negative. Genitourinary negative. Allergy none. Skin negative. Musculoskeletal as described above. Psychosocial negative. CONSTITUTIONAL negative. DERM negative. Oncological negative. EXAM: Afebrile. Heart rate is 64 beats per minute. Blood pressure is 116/71, respiratory rate 18. O2 saturation is 94% on room air. There is no jugular venous distention. Carotid upstroke is normal. There is no bruit. Chest exam reveals good air entry bilaterally. Heart exam reveals first and second heart sounds. No gallop. Abdomen soft. Exam of extremities did not reveal any edema. Left lower extremity shows that the pulses are not palpable. It is cold to touch and there is pallor. EKG shows normal sinus rhythm. LAB: Show a hemoglobin of 12.5, platelet count is 250, potassium is 4.8, creatinine is 1, fibrinogen is 470. ASSESSMENT: 1. Acute ischemic leg involving left lower extremity. This is probably secondary to thromboembolic event. 2. Coronary artery disease, status post angioplasty. 3. Hypertension. 4. Diabetes. 5. Dyslipidemia. PLAN: I will obtain a 2D echo. We will watch the patient on telemetry to rule out atrial fibrillation. We agree with the current management plans of the vascular surgeon. [place] / FIORDALIZAN: [id number] /
[2019-10-21 11:50] LABS: Glucose,Whole Blood 151 mg/dL (75-99)
--- NOTE | 2019-10-21 13:31 | P.PN ---
Subjective This is a pleasant 64 years old female with past medical history of hyperlipidemia, hypertension, type 2 diabetes and coronary artery disease status post stent and the heart about 7-10 years ago he follows all Dr. Toure at [facility] and his PCP is Dr. Palomino. Presents with left leg pain and decreased sensation which happened yesterday evening at 11 PM but his pain subsided and he went to sleep well, even this morning he woke up with eased symptoms however as the day went on he had this clinic pain came back associated with decreased se nsation and difficulty walking so he decided to come to emergency room. In the emergency room to receive Toradol, started on heparin drip and Decadron and his pain subsided now is like 0/10 compared to 10/10 felt like deep pain on admission. He can move his toes however his left leg felt colder than the right leg. As per staff Dr. Dukes has been contacted and she was to take him to cardiac cath with a recommendation to start him on heparin drip and admitted under medicine service for now He says he never smoked, no alcohol or illicit drugs. Vitals are stable.Labs including CBC, INR, BMP and liver enzymes were unremarkable, lactic acid is elevated at 2.5 10/13/2019 Patient presents with left lower extremity acute ischemia, status post thrombolytic therapy with TPA done yesterday for this common femoral artery. Today he is in the ICU, his left leg is warm and pulsation could be palpated in the left foot. Vitals and labs are stable, blood pressure is better today at 111/68 Lactic acid came back to normal at 1.7 He remains on heparin drip and normal saline at 75 mL/h, also he is on aspirin Cartilage team were consulted and the plan for TASIA for evaluation of potential cause of the thrombus Review of Systems CONSTITUTIONAL: No fever, no malaise, no fatigue. HEENT: No recent visual problems or hearing problems. Denied any sore throat. CARDIOVASCULAR: No orthopnea, PND, no palpitations, no syncope. PULMONARY: No shortness of breath, no cough, no hemoptysis. GASTROINTESTINAL: No diarrhea, no nausea, no vomiting, no abdominal pain. Normoactive bowel sounds. NEUROLOGICAL: No headaches, no weakness, no numbness. HEMATOLOGICAL: Denies any bleeding or petechiae. GENITOURINARY: Denies any burning micturition, frequency, or urgency. ENDOCRINE: Denies any polyuria or polydipsia. Active Medications Generic Name Dose Route Start Last Admin Trade Name Freq PRN Reason Stop Dose Admin Acetaminophen 650 mg 10/20/19 13:53 Tylenol Tab PO Q6HR PRN Mild Pain or Fever > 100.5 Aspirin 81 mg 10/20/19 21:00 10/20/19 19:56 Aspirin PO 81 mg HS AIDAN Administration Atorvastatin Calcium 40 mg 10/20/19 21:00 10/20/19 19:56 Lipitor PO 40 mg HS AIDAN Administration Glimepiride 1 mg 10/21/19 07:30 10/21/19 07:58 Amaryl PO Not Given BID-W/MEALS AIDAN Lisinopril/HCTZ 1 each 10/21/19 09:00 10/21/19 08:40 Zestoretic 20-12.5 PO 1 each DAILY AIDAN Administration Heparin Sodium (Porcine) 0 unit 10/20/19 11:56 Heparin IV PER PROTOCOL PRN Low PTT Protocol Heparin Sodium/Sodium Chloride 250 mls @ 17.064 mls/hr 10/20/19 12:00 10/21/19 08:39 25,000 unit/ Sodium Chloride IV 5.27 units/kg/hr .[id number] AIDAN 5 mls/hr Administration Protocol 18 UNITS/KG/HR Sodium Chloride 1,000 mls @ 75 mls/hr 10/20/19 17:45 10/21/19 06:00 Saline 0.9% IV 75 mls/hr .[id number] AIDAN Administration Alteplase, Recombinant 10 mg/ 100 mls @ 10 mls/hr 10/21/19 08:00 10/21/19 11:17 Sodium Chloride IA 10/21/19 17:59 1 mg/hr .Q10H ONE 10 mls/hr Administration Protocol 1 MG/HR Insulin Aspart 0 unit 10/20/19 21:00 10/21/19 11:50 Novolog SQ 1 unit ACHS AIDAN Administration Protocol Metoprolol Tartrate 25 mg 10/20/19 21:00 10/21/19 08:17 Lopressor PO Not Given BID [facility] Miscellaneous Information 1 each 10/20/19 10:18 Rx Info: Iv Contrast Was Given MISCELLANE 10/22/19 10:21 DAILY PRN Per Protocol Morphine Sulfate 4 mg 10/20/19 13:53 Morphine Sulfate (Inj) IV Q4HR PRN Severe Pain Naloxone HCl 0.2 mg 10/20/19 13:53 Narcan IV Q2M PRN Opioid Reversal Pantoprazole Sodium 40 mg 10/21/19 09:00 10/21/19 08:40 Protonix IV 40 mg DAILY AIDAN Administration Objective - Vital Signs Vital signs: Vital Signs Temp 98.0 F 10/21/19 08:00 Pulse 49 L 10/21/19 13:00 Resp 17 10/21/19 13:00 BP 111/68 10/21/19 13:00 Pulse Ox 93 L 10/21/19 13:00 Intake & Output 10/20/19 10/21/19 10/21/19 18:59 06:59 18:59 Intake Total 200 1075 946.583 Output Total 275 475 1811 Balance -200 275 -303.417 Weight 96.2 kg 95.2 kg Intake: IV 200 825 525 Sodium Chloride 0.9% 1, 150 825 525 000 ml @ 75 mls/hr IV . [id number] [facility] Rx#:[id number] Intake, IV Titration 250 21.583 Amount Heparin Sod,Pork in 0.45% 250 21.583 NaCl 25,000 unit In 0.45 % NaCl 1 250ml.bag @ 18 UNITS/KG/HR 17.064 mls/hr IV .[id number] [facility] Rx#: [id number] Oral 400 Output: Urine 765 392 8985 Other: Voiding Method Indwelling Catheter Indwelling Catheter - Exam GENERAL: The patient is alert and oriented x3, not in any acute distress. Well developed, well nourished. HEENT: Pupils are round and equally reacting to light. EOMI. No scleral icterus. No conjunctival pallor. Normocephalic, atraumatic. No pharyngeal erythema. No thyromegaly. CARDIOVASCULAR: S1 and S2 present. No murmurs, rubs, or gallops. PULMONARY: Chest is clear to auscultation, no wheezing or crackles. ABDOMEN: Soft, nontender, nondistended, normoactive bowel sounds. No palpable organomegaly. MUSCULOSKELETAL: No joint swelling or deformity. EXTREMITIES: No cyanosis, clubbing, or pedal edema. NEUROLOGICAL: Gross neurological examination did not reveal any focal deficits. SKIN: No rashes. no petechiae. - Labs CBC & Chem 7: 10/21/19 04:57 10/21/19 04:57 Labs: Abnormal Lab Results - Last 24 Hours (Table) 10/20/19 10/20/19 10/20/19 Range/Units 10:25 13:45 16:37 Hgb (13.0-17.5) gm/dL Hct (39.0-53.0) % Neutrophils # (1.3-7.7) k/uL Lymphocytes # (1.0-4.8) k/uL APTT (22.0-30.0) sec Fibrinogen 517 H (200-500) mg/dL Sodium (137-145) mmol/L BUN (9-20) mg/dL Glucose (74-99) mg/dL POC Glucose (mg/dL) 172 H (75-99) mg/dL Plasma Lactic Acid Bossman 2.9 H* (0.7-2.0) mmol/L Total Protein (6.3-8.2) g/dL Albumin (3.5-5.0) g/dL 10/20/19 10/20/19 10/20/19 Range/Units 16:48 16:48 16:48 Hgb 12.9 L (13.0-17.5) gm/dL Hct (39.0-53.0) % Neutrophils # (1.3-7.7) k/uL Lymphocytes # 0.7 L (1.0-4.8) k/uL APTT 86.3 H (22.0-30.0) sec Fibrinogen 535 H (200-500) mg/dL Sodium (137-145) mmol/L BUN (9-20) mg/dL Glucose (74-99) mg/dL POC Glucose (mg/dL) (75-99) mg/dL Plasma Lactic Acid Bossman 2.5 H* (0.7-2.0) mmol/L Total Protein (6.3-8.2) g/dL Albumin (3.5-5.0) g/dL 10/20/19 10/20/19 10/20/19 Range/Units 16:48 19:58 20:37 Hgb 12.8 L (13.0-17.5) gm/dL Hct (39.0-53.0) % Neutrophils # (1.3-7.7) k/uL Lymphocytes # 0.7 L (1.0-4.8) k/uL APTT (22.0-30.0) sec Fibrinogen (200-500) mg/dL Sodium (137-145) mmol/L BUN 24 H (9-20) mg/dL Glucose (74-99) mg/dL POC Glucose (mg/dL) 229 H (75-99) mg/dL Plasma Lactic Acid Bossman (0.7-2.0) mmol/L Total Protein (6.3-8.2) g/dL Albumin (3.5-5.0) g/dL 10/20/19 10/21/19 10/21/19 Range/Units 20:37 00:24 04:57 Hgb 12.5 L 12.5 L (13.0-17.5) gm/dL Hct 37.8 L 38.5 L (39.0-53.0) % Neutrophils # 7.9 H (1.3-7.7) k/uL Lymphocytes # 0.9 L (1.0-4.8) k/uL APTT (22.0-30.0) sec Fibrinogen (200-500) mg/dL Sodium (137-145) mmol/L BUN (9-20) mg/dL Glucose (74-99) mg/dL POC Glucose (mg/dL) (75-99) mg/dL Plasma Lactic Acid Bossman 3.1 H* (0.7-2.0) mmol/L Total Protein (6.3-8.2) g/dL Albumin (3.5-5.0) g/dL 10/21/19 10/21/19 Range/Units 04:57 11:48 Hgb (13.0-17.5) gm/dL Hct (39.0-53.0) % Neutrophils # (1.3-7.7) k/uL Lymphocytes # (1.0-4.8) k/uL APTT (22.0-30.0) sec Fibrinogen (200-500) mg/dL Sodium 134 L (137-145) mmol/L BUN 26 H (9-20) mg/dL Glucose 108 H (74-99) mg/dL POC Glucose (mg/dL) 151 H (75-99) mg/dL Plasma Lactic Acid Bossman (0.7-2.0) mmol/L Total Protein 6.1 L (6.3-8.2) g/dL Albumin 3.2 L (3.5-5.0) g/dL Assessment and Plan Assessment: Left leg acute ischemia to, and femoral artery status post thrombolytic therapy Elevated lactic acid, came back to normal Hypertension Hyperlipidemia History of coronary artery disease status post stent about 7-10 years ago Plan: This is a pleasant 64 years old male who presents with left lower extremity was suspicious for acute ischemia. Continue with heparin drip. Patient is followed closely by from vascular surgery. Cardiology and pulmonary/critical care team also following the patient. Follow-up recommendation by grain mixer for further cardiac workup Labs and medication were reviewed.. Continue same treatment. Continue with symptomatic treatment. Resume home medication. Monitor lytes and vitals. DVT and GI prophylaxis. Further recommendations of the clinical course of the patient DVT prophylaxis: heparin GI Prophylaxis: Ppi PT/OT: Pending Prognosis is guarded
--- NOTE | 2019-10-21 14:02 | P.PN ---
Progress Note - Text Progress Note Date: 10/21/19 Patient seen and examined. Overall no issues overnight. Labs reviewed. Has more feeling in his left foot. No oozing around the groin. No drainage or bleeding. Biphasic signal at the PT, weak biphasic DP on the left. Triphasic right PT. Questions answered, plan for return to interventional suite for angiogram and possible thrombectomy and angioplasty if needed.
[2019-10-21] MEDS: fentaNYL (PF) 50 MCG/ML 2 ML AMP IV ONE ×2 (14:04→14:39)
[2019-10-21] MEDS ORDERED: MIDAZOLAM 2 MG/2 ML VIAL IV ONE ×2 (14:05)
[2019-10-21] MEDS ORDERED: IV FLUID CONTINUATION 600 ML IV ONE (14:05)
[2019-10-21] MEDS ORDERED: HEPARIN SODIUM 1,000 UN/ML (10ML VL) IV ONE (14:34)
[2019-10-21] MEDS ORDERED: IOPAMIDOL-250 50ML BTL INTRAARTER ONE ×4 (15:07→15:19)
[2019-10-21] MEDS ORDERED: ALTEPLASE BOLUS 1 MG/1 ML SYRINGE IV STA (15:15)
[2019-10-21] MEDS ORDERED: LIDOCAINE 1% INJ 10MG/ML (20 ML MDV) SQ ONE (15:22)
--- NOTE | 2019-10-21 16:07 | P.OP ---
Date of Procedure: 10/21/19 Description of Procedure: Preoperative diagnosis: Acute limb ischemia left lower extremity, previous initiation of thrombolytics, femoral artery occlusion Postoperative diagnosis: Same Procedure: [Left lower extremity angiogram via existing catheter Pharmacal Mechanical thrombectomy with penumbra CAT 8 suction device Selective third order left lower extremity angiogram of peroneal artery Repositioning and reinitiation of TPA thrombolysis Moderate conscious sedation 85 minutes] Surgeon: Maylin Dukes D.O. Anesthesia moderate sedation with IV and local EBL: [300 mL] IV fluids: [See notes] Urine output: [See notes] Drains: [None] Complications: [None immediately apparent] Condition: [Stable back to ICU] Operative indication and findings: [The patient is a 64-year-old male with a acute left lower extremity femoral artery occlusion likely an embolic source who was initiated on thrombolytics yesterday who presents today for repeat imaging and possible intervention. He over the night began having a PT signal on the left. He is still motor sensory intact with improved sensation and feeling in his left foot] Procedure in detail: [The patient was taken to the specials suite and placed in supine position. The right groin was prepped and draped in usual sterile fashion. A preprocedure timeout was performed, all parties were in agreement. After appropriate IV sedation, the skin surrounding the catheter was anesthetized. A Glidewire was placed through the previous infusion catheter. An angiogram was performed revealing residual thrombus in the common femoral and profunda arteries as well as the proximal superficial femoral artery. This is an improvement from yesterday as there was no visualization of the profunda at yesterday's evaluation. The sheath was then exchanged over the guidewire for a 8-Nepali destination. The CAT 8 penumbra suction device was utilized. There was improvement and removal of thrombus. Upon further imaging down the leg there was sluggish flow and there was a portion of thrombus that did travel to the popliteal artery. Guidewires and catheters were used to cross this area and a repeat of the penumbra suction was performed. This area was improved but again distal there was smaller portions of the thrombus at the level of the anterior tibial takeoff trunk. Attempts were made to suction this and at that time a wire was used to cross the lesion a angiogram of the peroneal artery was taken revealing true lumen. The suction device was removed and a infusion thrombus catheter was placed. The patient was reinitiated on thrombolysis. The catheter was sutured into place and a dressing was placed. He was transferred back to the ICU in stable condition having tolerated the procedure well. We'll plan to come back tomorrow. At the conclusion of this procedure there is a weak monophasic PT signal at remains as previously.]
[2019-10-21 16:20] LABS: Glucose,Whole Blood 89 mg/dL (75-99)
[2019-10-21 17:39] LABS: Glucose,Whole Blood 124 mg/dL (75-99)
[2019-10-21 17:40] LABS: Basophils % (A) 0 %; Eosinophils # (A) 0.2 k/uL (0-0.7); Eosinophils % (A) 2 %; HCT 40.7 % (39.0-53.0); Lymphocytes # (A) 1.4 k/uL (1.0-4.8); Lymphocytes % (A) 19 %; MCH 27.9 pg (25.0-35.0); MCHC 31.9 g/dL (31.0-37.0); MCV 87.5 fL (80.0-100.0); Monocytes # (A) 0.4 k/uL (0-1.0); Monocytes % (A) 5 %; Neutrophils # (A) 5.5 k/uL (1.3-7.7); Neutrophils % (A) 73 %; Platelet Count 259 k/uL (150-450); RBC 4.65 m/uL (4.30-5.90); RDW 12.9 % (11.5-15.5); WBC 7.5 k/uL (3.8-10.6)
[2019-10-21 18:21] LABS: Partial Thromboplastin Time 34.8 sec (22.0-30.0)
[2019-10-21] MEDS: ALTEPLASE 10 MG in SODIUM CHLORIDE 0.9% 100 ML IA ONE ×2 (19:10→21:38)
[2019-10-21] MEDS: HEPARIN SODIUM,PORCINE 5,000 UNIT/ML 1 ML VIAL IV PRN (19:40)
[2019-10-21] MEDS: ATORVASTATIN 40 MG TAB PO SCH (20:07)
[2019-10-21] MEDS: ASPIRIN 81 MG PO SCH (20:07)
[2019-10-21 20:11] LABS: Glucose,Whole Blood 203 mg/dL (75-99)
[2019-10-21 20:57] LABS: Basophils % (A) 0 %; Eosinophils # (A) 0.2 k/uL (0-0.7); Eosinophils % (A) 2 %; HCT 39.3 % (39.0-53.0); HGB 12.6 gm/dL (13.0-17.5); Lymphocytes # (A) 1.4 k/uL (1.0-4.8); Lymphocytes % (A) 20 %; MCH 28.2 pg (25.0-35.0); MCHC 32.1 g/dL (31.0-37.0); Mean Platelet Volume 7.1; Monocytes # (A) 0.3 k/uL (0-1.0); Monocytes % (A) 5 %; Neutrophils # (A) 5.1 k/uL (1.3-7.7); Neutrophils % (A) 72 %; Platelet Count 251 k/uL (150-450); RBC 4.46 m/uL (4.30-5.90); RDW 12.9 % (11.5-15.5)
[2019-10-21 21:22] LABS: Partial Thromboplastin Time 171.9 sec (22.0-30.0)
[2019-10-21 23:39] LABS: Basophils % (A) 0 %; Eosinophils # (A) 0.1 k/uL (0-0.7); Eosinophils % (A) 2 %; HCT 37.2 % (39.0-53.0); HGB 12.8 gm/dL (13.0-17.5); Lymphocytes # (A) 1.3 k/uL (1.0-4.8); Lymphocytes % (A) 21 %; MCH 30.1 pg (25.0-35.0); MCHC 34.3 g/dL (31.0-37.0); MCV 87.8 fL (80.0-100.0); Mean Platelet Volume 7.6; Monocytes # (A) 0.3 k/uL (0-1.0); Monocytes % (A) 5 %; Neutrophils # (A) 4.4 k/uL (1.3-7.7); Neutrophils % (A) 71 %; Platelet Count 251 k/uL (150-450); RBC 4.23 m/uL (4.30-5.90); RDW 12.8 % (11.5-15.5); WBC 6.3 k/uL (3.8-10.6)
[2019-10-22 00:05] LABS: INR 1.1 (<1.2); Prothrombin Time 11.1 sec (9.0-12.0)
[2019-10-22] MEDS: HEPARIN SOD,PORK IN 0.45% NACL 25,000 UNIT in 0.45% NACL 1 250ML.BAG IV SCH ×2 (00:12→23:22)
[2019-10-22] MEDS: HEPARIN SODIUM,PORCINE 5,000 UNIT/ML 1 ML VIAL IV PRN (00:13)
[2019-10-22 05:32] LABS: Basophils % (A) 0 %; Eosinophils # (A) 0.1 k/uL (0-0.7); Eosinophils % (A) 2 %; HCT 38.9 % (39.0-53.0); HGB 12.7 gm/dL (13.0-17.5); Lymphocytes # (A) 1.4 k/uL (1.0-4.8); Lymphocytes % (A) 19 %; MCH 28.2 pg (25.0-35.0); MCHC 32.5 g/dL (31.0-37.0); MCV 86.9 fL (80.0-100.0); Mean Platelet Volume 6.9; Monocytes # (A) 0.4 k/uL (0-1.0); Monocytes % (A) 6 %; Neutrophils # (A) 5.5 k/uL (1.3-7.7); Neutrophils % (A) 73 %; Platelet Count 266 k/uL (150-450); RBC 4.48 m/uL (4.30-5.90); WBC 7.5 k/uL (3.8-10.6)
[2019-10-22 05:44] LABS: Partial Thromboplastin Time 53.2 sec (22.0-30.0)
[2019-10-22 06:46] LABS: Glucose,Whole Blood 110 mg/dL (75-99)
[2019-10-22] MEDS: INSULIN ASPART (NovoLOG) 100 UNIT/ML VIAL SQ SCH ×4 (06:48→22:11)
[2019-10-22] MEDS: GLIMEPIRIDE 1 MG TAB PO SCH ×2 (06:48→17:45)
[2019-10-22] MEDS ORDERED: ALTEPLASE 10 MG in SODIUM CHLORIDE 0.9% 100 ML IA ONE (07:30)
[2019-10-22 08:08] LABS: Calcium 8.6 mg/dL (8.4-10.2)
[2019-10-22 08:54] LABS: Basophils % (A) 0 %; Eosinophils # (A) 0.1 k/uL (0-0.7); Eosinophils % (A) 1 %; HCT 41.6 % (39.0-53.0); HGB 13.4 gm/dL (13.0-17.5); Lymphocytes # (A) 1.4 k/uL (1.0-4.8); Lymphocytes % (A) 17 %; MCH 28.2 pg (25.0-35.0); MCHC 32.2 g/dL (31.0-37.0); MCV 87.5 fL (80.0-100.0); Mean Platelet Volume 7.3; Monocytes # (A) 0.4 k/uL (0-1.0); Monocytes % (A) 5 %; Neutrophils # (A) 6.1 k/uL (1.3-7.7); Neutrophils % (A) 76 %; Platelet Count 291 k/uL (150-450); RBC 4.75 m/uL (4.30-5.90)
[2019-10-22] MEDS: SODIUM CHLORIDE 0.9% 1,000 ML IV SCH ×2 (09:45→22:18)
--- NOTE | 2019-10-22 09:47 | IR ---
EXAMINATION TYPE: IR angio extremity LT DATE OF EXAM: 10/20/2019 COMPARISON: NONE HISTORY: Fluoroscopy time. Fluoroscopy was provided to the referring clinician.
[2019-10-22] MEDS: PANTOPRAZOLE 40 MG/10 ML VIAL IV SCH (09:55)
[2019-10-22] MEDS: LISINOPRIL-HCTZ 20-12.5 MG 1 EACH TAB PO SCH (09:55)
--- NOTE | 2019-10-22 11:34 | PN ---
PROGRESS NOTE Eusebio is a 64-year-old gentleman who is admitted to hospital with acute arterial occlusion of the left leg. He has known CAD and had prior angioplasty. The patient underwent left lower extremity angiogram yesterday and had mechanical thrombectomy. He needs another surgical intervention today. On exam, heart rate is 68 beats per minute, blood pressure is 101/70, respiratory is 18. Chest exam reveals good air entry bilaterally. Heart exam reveals first and second heart sounds. No gallop. Exam of extremities reveals that the pulses not palpable over the left foot. The patient is currently on aspirin, Lipitor, intravenous heparin, Zestoretic and Lopressor. The patient is also receiving thrombolytics. Echo results are pending at this time. MMODL / IJN: [id number] /
--- NOTE | 2019-10-22 11:37 | PN ---
PROGRESS NOTE ADDENDUM: The patient will continue current medications. We will review the echo results once they are available. MMODL / IJN: [id number] /
[2019-10-22 12:21] LABS: Glucose,Whole Blood 136 mg/dL (75-99)
[2019-10-22 12:27] LABS: Basophils % (A) 0 %; Eosinophils # (A) 0.1 k/uL (0-0.7); Eosinophils % (A) 2 %; HCT 38.9 % (39.0-53.0); HGB 12.4 gm/dL (13.0-17.5); Lymphocytes # (A) 1.2 k/uL (1.0-4.8); Lymphocytes % (A) 17 %; MCH 27.9 pg (25.0-35.0); MCV 87.3 fL (80.0-100.0); Mean Platelet Volume 7.4; Monocytes # (A) 0.4 k/uL (0-1.0); Monocytes % (A) 5 %; Neutrophils # (A) 5.3 k/uL (1.3-7.7); Neutrophils % (A) 75 %; Platelet Count 283 k/uL (150-450); RBC 4.45 m/uL (4.30-5.90); RDW 12.9 % (11.5-15.5)
--- NOTE | 2019-10-22 13:54 | P.PN ---
Subjective This is a pleasant 64 years old female with past medical history of hyperlipidemia, hypertension, type 2 diabetes and coronary artery disease status post stent and the heart about 7-10 years ago he follows all Dr. Toure at [facility] and his PCP is Dr. Palomino. Presents with left leg pain and decreased sensation which happened yesterday evening at 11 PM but his pain subsided and he went to sleep well, even this morning he woke up with eased symptoms however as the day went on he had this clinic pain came back associated with decreased se nsation and difficulty walking so he decided to come to emergency room. In the emergency room to receive Toradol, started on heparin drip and Decadron and his pain subsided now is like 0/10 compared to 10/10 felt like deep pain on admission. He can move his toes however his left leg felt colder than the right leg. As per staff Dr. Dukes has been contacted and she was to take him to cardiac cath with a recommendation to start him on heparin drip and admitted under medicine service for now He says he never smoked, no alcohol or illicit drugs. Vitals are stable.Labs including CBC, INR, BMP and liver enzymes were unremarkable, lactic acid is elevated at 2.5 10/21/2019 Patient presents with left lower extremity acute ischemia, status post thrombolytic therapy with TPA done yesterday for this common femoral artery. Today he is in the ICU, his left leg is warm and pulsation could be palpated in the left foot. Vitals and labs are stable, blood pressure is better today at 111/68 Lactic acid came back to normal at 1.7 He remains on heparin drip and normal saline at 75 mL/h, also he is on aspirin Cartilage team were consulted and the plan for TASIA for evaluation of potential cause of the thrombus 10/22/2019 Patient the ICU, no new complaints, he has no leg pain. No chest pain or dyspn ea. His legs is warm again and pulsation is palpable and his left foot. However patient will need another third angiogram today for removal of further clots that are moved distally. Cardiology team on the case Vitals stable. CBC is unremarkable, fibrinogen is within reference range, sugar is controlled. Echocardiogram is done and result is pending Patient remains on heparin drip and normal saline at 75 mL/h, he is also on baby aspirin at 81 mg Review of Systems CONSTITUTIONAL: No fever, no malaise, no fatigue. HEENT: No recent visual problems or hearing problems. Denied any sore throat. CARDIOVASCULAR: No orthopnea, PND, no palpitations, no syncope. PULMONARY: No shortness of breath, no cough, no hemoptysis. GASTROINTESTINAL: No diarrhea, no nausea, no vomiting, no abdominal pain. Normoactive bowel sounds. NEUROLOGICAL: No headaches, no weakness, no numbness. HEMATOLOGICAL: Denies any bleeding or petechiae. GENITOURINARY: Denies any burning micturition, frequency, or urgency. ENDOCRINE: Denies any polyuria or polydipsia. Active Medications Generic Name Dose Route Start Last Admin Trade Name Freq PRN Reason Stop Dose Admin Acetaminophen 650 mg 10/20/19 13:53 Tylenol Tab PO Q6HR PRN Mild Pain or Fever > 100.5 Aspirin 81 mg 10/20/19 21:00 10/21/19 20:07 Aspirin PO 81 mg HS AIDAN Administration Atorvastatin Calcium 40 mg 10/20/19 21:00 10/21/19 20:07 Lipitor PO 40 mg HS AIDAN Administration Glimepiride 1 mg 10/21/19 07:30 10/22/19 06:48 Amaryl PO Not Given BID-W/MEALS AIDAN Lisinopril/HCTZ 1 each 10/21/19 09:00 10/22/19 09:55 Zestoretic 20-12.5 PO 1 each DAILY AIDAN Administration Heparin Sodium (Porcine) 0 unit 10/20/19 11:56 10/22/19 00:13 Heparin IV 2,375 unit PER PROTOCOL PRN Administration Low PTT Protocol Sodium Chloride 1,000 mls @ 75 mls/hr 10/20/19 17:45 10/21/19 20:14 Saline 0.9% IV 75 mls/hr .[id number] AIDAN Administration Heparin Sodium/Sodium Chloride 250 mls @ 9.996 mls/hr 10/21/19 22:45 10/22/19 00:12 25,000 unit/ Sodium Chloride IV 12.5 units/kg/hr .Q24H AIDAN 11.9 mls/hr Administration Protocol 10.5 UNITS/KG/HR Alteplase, Recombinant 10 mg/ 100 mls @ 10 mls/hr 10/22/19 07:30 10/22/19 12:51 Sodium Chloride IA 10/22/19 17:29 1 mg/hr .Q10H ONE 10 mls/hr Administration Protocol 1 MG/HR Insulin Aspart 0 unit 10/20/19 21:00 10/22/19 12:34 Novolog SQ Not Given ACHS [facility] Protocol Metoprolol Tartrate 25 mg 10/20/19 21:00 10/21/19 20:07 Lopressor PO 25 mg BID [facility] Administration Morphine Sulfate 4 mg 10/20/19 13:53 Morphine Sulfate (Inj) IV Q4HR PRN Severe Pain Naloxone HCl 0.2 mg 10/20/19 13:53 Narcan IV Q2M PRN Opioid Reversal Pantoprazole Sodium 40 mg 10/21/19 09:00 10/22/19 09:55 Protonix IV 40 mg DAILY [facility] Administration Objective - Vital Signs Vital signs: Vital Signs Temp 98.2 F 10/22/19 12:00 Pulse 60 10/22/19 13:00 Resp 35 H 10/22/19 13:00 BP 108/81 10/22/19 13:00 Pulse Ox 94 L 10/22/19 13:00 Intake & Output 10/21/19 10/22/19 10/22/19 18:59 06:59 18:59 Intake Total 1371.583 996.847 525 Output Total 2044 2064 935 Balance -673.417 -1068.153 -410 Weight 93.7 kg Intake: IV 950 900 525 Sodium Chloride 0.9% 1, 750 900 525 000 ml @ 75 mls/hr IV . [id number] [facility] Rx#:[id number] Intake, IV Titration 21.583 96.847 Amount Alteplase 10 mg In Sodium 24.667 Chloride 0.9% 100 ml @ 1 MG/HR 10 mls/hr IA .Q10H ONE Rx#:[id number] Heparin Sod,Pork in 0.45% 21.583 72.18 NaCl 25,000 unit In 0.45 % NaCl 1 250ml.bag @ 18 UNITS/KG/HR 17.064 mls/hr IV .[id number] [facility] Rx#: [id number] Oral 400 Output: Urine 1795 5 935 Estimated Blood Loss 250 Other: Voiding Method Indwelling Catheter Indwelling Catheter Indwelling Catheter - Exam GENERAL: The patient is alert and oriented x3, not in any acute distress. Well developed, well nourished. HEENT: Pupils are round and equally reacting to light. EOMI. No scleral icterus. No conjunctival pallor. Normocephalic, atraumatic. No pharyngeal erythema. No thyromegaly. CARDIOVASCULAR: S1 and S2 present. No murmurs, rubs, or gallops. PULMONARY: Chest is clear to auscultation, no wheezing or crackles. ABDOMEN: Soft, nontender, nondistended, normoactive bowel sounds. No palpable organomegaly. MUSCULOSKELETAL: No joint swelling or deformity. EXTREMITIES: No cyanosis, clubbing, or pedal edema. NEUROLOGICAL: Gross neurological examination did not reveal any focal deficits. SKIN: No rashes. no petechiae. - Labs CBC & Chem 7: 10/22/19 11:56 10/22/19 04:52 Labs: Abnormal Lab Results - Last 24 Hours (Table) 10/21/19 10/21/19 10/21/19 Range/Units 17:19 17:19 17:38 RBC (4.30-5.90) m/uL Hgb (13.0-17.5) gm/dL Hct (39.0-53.0) % APTT 34.8 H (22.0-30.0) sec BUN 23 H (9-20) mg/dL POC Glucose (mg/dL) 124 H (75-99) mg/dL 10/21/19 10/21/19 10/21/19 Range/Units 20:10 20:26 20:26 RBC (4.30-5.90) m/uL Hgb 12.6 L (13.0-17.5) gm/dL Hct (39.0-53.0) % APTT 171.9 H* (22.0-30.0) sec BUN (9-20) mg/dL POC Glucose (mg/dL) 203 H (75-99) mg/dL 10/21/19 10/21/19 10/22/19 Range/Units 23:20 23:20 04:52 RBC 4.23 L (4.30-5.90) m/uL Hgb 12.8 L 12.7 L (13.0-17.5) gm/dL Hct 37.2 L 38.9 L (39.0-53.0) % APTT 42.0 H (22.0-30.0) sec BUN (9-20) mg/dL POC Glucose (mg/dL) (75-99) mg/dL 10/22/19 10/22/19 10/22/19 Range/Units 04:52 06:45 11:56 RBC (4.30-5.90) m/uL Hgb 12.4 L (13.0-17.5) gm/dL Hct 38.9 L (39.0-53.0) % APTT 53.2 H (22.0-30.0) sec BUN (9-20) mg/dL POC Glucose (mg/dL) 110 H (75-99) mg/dL 10/22/19 10/22/19 Range/Units 12:00 12:20 RBC (4.30-5.90) m/uL Hgb (13.0-17.5) gm/dL Hct (39.0-53.0) % APTT 42.7 H (22.0-30.0) sec BUN (9-20) mg/dL POC Glucose (mg/dL) 136 H (75-99) mg/dL Assessment and Plan Assessment: Left leg acute ischemia to, and femoral artery status post thrombolytic therapy Elevated lactic acid, came back to normal Hypertension Hyperlipidemia History of coronary artery disease status post stent about 7-10 years ago Plan: This is a pleasant 64 years old male who presents with left lower extremity was suspicious for acute ischemia. Continue with heparin drip. Patient is followed closely by from vascular surgery. Cardiology and pulmonary/critical care team also following the patient. Follow-up recommendation by licensed psychologist for further cardiac workup Labs and medication were reviewed.. Continue same treatment. Continue with symptomatic treatment. Resume home medication. Monitor lytes and vitals. DVT and GI prophylaxis. Further recommendations of the clinical course of the p atient DVT prophylaxis: heparin GI Prophylaxis: Ppi PT/OT: Pending Prognosis is guarded
[2019-10-22] MEDS ORDERED: IV FLUID CONTINUATION 1,000 ML IV ONE (14:00)
--- NOTE | 2019-10-22 14:00 | P.PN ---
Subjective Progress Note Date: 10/22/19 Principal diagnosis: 62-year-old male patient presented emergency with acute onset left lower extremity pain and loss in sensation. His motor function was intact. CT imaging revealed occlusion of the artery at the level of the common femoral artery and thrombus throughout the superficial femoral artery. The patient was taken to the Relationship Executive and the patient underwent ultrasound-guided right common femoral artery access with insertion of a catheter and initiation of thrombo lytic treatment. Following that, the patient was brought into the intensive care unit where frequent monitoring revealed that he started to regain some pulses in his dorsalis pedis and this morning there are Doppler signals. The patient is going to be taken back to the left for reevaluation today. He is doing well. He has no specific complaints. He has no history of any claudication or peripheral vascular disease pain no carotid artery disease. He can recall a remote history of [place] many years back. Does not see a student education specialist. He is a nonsmoker. He has hyperlipidemia. He also has hypertension. He takes metformin for diabetes mellitus. Patient was reevaluated today on 10/22/19, remains in the ICU, patient is scheduled to undergo again left lower extremity angiogram via existing catheter, possible mechanical thrombectomy and suction. And possibly reinitiation of TPA thrombolysis. In the meantime the patient continues to do well, feeling better, denies any complaints. He is presently on heparin, and he will be taken down to the OR for angiogram shortly after my evaluation. Labs were noted to be unremarkable. And his PTT was 42.7 Objective - Vital Signs Vital signs: Vital Signs Temp 98.2 F 10/22/19 12:00 Pulse 60 10/22/19 13:00 Resp 35 H 10/22/19 13:00 BP 108/81 10/22/19 13:00 Pulse Ox 94 L 10/22/19 13:00 Intake & Output 10/21/19 10/22/19 10/22/19 18:59 06:59 18:59 Intake Total 1371.583 996.847 525 Output Total 20445 935 Balance -673.417 -1068.153 -410 Weight 93.7 kg Intake: IV 950 900 525 Sodium Chloride 0.9% 1, 750 900 525 000 ml @ 75 mls/hr IV . [id number] [facility] Rx#:[id number] Intake, IV Titration 21.583 96.847 Amount Alteplase 10 mg In Sodium 24.667 Chloride 0.9% 100 ml @ 1 MG/HR 10 mls/hr IA .Q10H [facility] Rx#:[id number] Heparin Sod,Pork in 0.45% 21.583 72.18 NaCl 25,000 unit In 0.45 % NaCl 1 250ml.bag @ 18 UNITS/KG/HR 17.064 mls/hr IV .[id number] [facility] Rx#: [id number] Oral 400 Output: Urine 1795 2065 935 Estimated Blood Loss 250 Other: Voiding Method Indwelling Catheter Indwelling Catheter Indwelling Catheter - Exam Physical Exam: Revealed 64-year-old white male in no form of distress. On room air. Head: Atraumatic, normocephalic. HEENT:[Neck is supple.] [No neck masses.] [No thyromegaly.] [No JVD.] Chest: [Clear throughout, no crackles, no rhonchi, no wheezes.] Cardiac Exam: [Normal S1 and S2, no S3 gallop, no murmur.] Abdomen: [Soft, nontender, no megaly, no rebound, no guarding, normal bowel sounds.] Extremities: [No clubbing, no edema, no cyanosis.] Diminished distal pulses bilaterally. Neurological Exam: [No focal neurologic deficit.] Alert oriented 3. Psychiatric: Normal mood affect and normal mental status examination. Skin: No rashes - Labs CBC & Chem 7: 10/22/19 11:56 10/22/19 04:52 Labs: Abnormal Lab Results - Last 24 Hours (Table) 10/21/19 10/21/19 10/21/19 Range/Units 17:19 17:19 17:38 RBC (4.30-5.90) m/uL Hgb (13.0-17.5) gm/dL Hct (39.0-53.0) % APTT 34.8 H (22.0-30.0) sec BUN 23 H (9-20) mg/dL POC Glucose (mg/dL) 124 H (75-99) mg/dL 10/21/19 10/21/19 10/21/19 Range/Units 20:10 20:26 20:26 RBC (4.30-5.90) m/uL Hgb 12.6 L (13.0-17.5) gm/dL Hct (39.0-53.0) % APTT 171.9 H* (22.0-30.0) sec BUN (9-20) mg/dL POC Glucose (mg/dL) 203 H (75-99) mg/dL 10/21/19 10/21/19 10/22/19 Range/Units 23:20 23:20 04:52 RBC 4.23 L (4.30-5.90) m/uL Hgb 12.8 L 12.7 L (13.0-17.5) gm/dL Hct 37.2 L 38.9 L (39.0-53.0) % APTT 42.0 H (22.0-30.0) sec BUN (9-20) mg/dL POC Glucose (mg/dL) (75-99) mg/dL 10/22/19 10/22/19 10/22/19 Range/Units 04:52 06:45 11:56 RBC (4.30-5.90) m/uL Hgb 12.4 L (13.0-17.5) gm/dL Hct 38.9 L (39.0-53.0) % APTT 53.2 H (22.0-30.0) sec BUN (9-20) mg/dL POC Glucose (mg/dL) 110 H (75-99) mg/dL 10/22/19 10/22/19 Range/Units 12:00 12:20 RBC (4.30-5.90) m/uL Hgb (13.0-17.5) gm/dL Hct (39.0-53.0) % APTT 42.7 H (22.0-30.0) sec BUN (9-20) mg/dL POC Glucose (mg/dL) 136 H (75-99) mg/dL Assessment and Plan Assessment: Impression: Acute ischemic left lower extremity, status post insertion of right common femoral artery catheter and subsequent thrombolytic therapy. Postoperative day #2. Acute lactic acidosis secondary to above. Type 2 diabetes. Benign essential hypertension. Dyslipidemia. History of underlying coronary artery disease and previous [place]. Recommendation: Continue to monitor the ICU. Continue tight control of his cardiovascular risks including hypertension and diabetes mellitus and dyslipidemia. Patient is scheduled to undergo repeat angiogram later this afternoon, and possibly thrombectomy. And reinitiation of thrombolytic therapy. We'll continue to follow. Time with Patient: Less than 30
--- NOTE | 2019-10-22 14:11 | IR ---
EXAMINATION TYPE: IR angio extremity LT DATE OF EXAM: 10/21/2019 COMPARISON: NONE HISTORY: Fluoroscopy time. Fluoroscopy was provided to the referring clinician.
[2019-10-22] MEDS ORDERED: MIDAZOLAM 2 MG/2 ML VIAL IV ONE (14:21)
[2019-10-22] MEDS ORDERED: fentaNYL (PF) 50 MCG/ML 2 ML AMP IV ONE (14:28)
[2019-10-22] MEDS ORDERED: IOPAMIDOL-250 50ML BTL INTRAARTER ONE (14:38)
--- NOTE | 2019-10-22 15:03 | P.OP ---
Date of Procedure: 10/22/19 Description of Procedure: Preoperative diagnosis: Acute limb ischemia, acute femoral artery occlusion, previous initiation of thrombolytics Postoperative diagnosis: Same, resolved occlusion Procedure: [#1 angiogram via existing catheter of the left lower extremity #2 iliofemoral angiogram of the right #3 moderate conscious sedation 9 minutes] Surgeon: Maylin Dukes D.O. EBL: [Less than 10 mL] IV fluids: [See records] Urine output: [See records] Drains: [None] Complications: [None immediately apparent] Condition: [Stable back to ICU with palpable PT bilaterally, multiphasic DP bilaterally] Operative indication and findings: [The patient is a 64 old male who was previously initiated on thrombolytics for femoral artery occlusion along with suction thrombectomy, he presents today for repeat imaging and TPA rechecked. Over the evening the patient had return of a palpable posterior tibial pulse with a multiphasic dorsalis pedis signal] Procedure in detail: [The patient was taken to the special suite and placed in supine position. The right groin was prepped and draped in usual sterile fashi on. A preprocedure timeout was performed and all parties were in agreement. The previous catheter was removed over a guidewire. A mammogram was performed via the sheath revealing no residual thrombus in the infrapopliteal artery, to the peroneal trunk or down to the level of the ankle. The sheath was then removed over the wire and a right iliofemoral angiogram was performed. There was good positioning of the sheath without any evidence of arterial consultations or thrombus. The sheath was exchanged for a short 8-Namibian sheath. An 8-Namibian Angio-Seal was utilized with good hemostasis. Dressing was placed. The patient was brought to transferred back to ICU in stable condition having tolerated his procedure well. At the end of the procedure he maintained a bilateral palpable posterior tibial pulses. The patient will require further workup for thromboembolic disease, he is are undergone a transthoracic echocardiogram which is pending results. If there is no intracardiac finding, he will need a CT angiogram of his thorax and abdomen to rule out any aneurysmal or ulcerative disease as a cause. He will be restarted on heparin
--- NOTE | 2019-10-22 15:04 | IR ---
EXAMINATION TYPE: IR angio lower extremity LT DATE OF EXAM: 10/22/2019 COMPARISON: NONE HISTORY: Fluoroscopy time. Fluoroscopy was provided to the referring clinician.
--- NOTE | 2019-10-22 16:43 | P.PN ---
Subjective Progress Note Date: 10/22/19 Patient seen and examined lying in bed in the ICU. Yesterday he underwent angiogram with initiation of thrombolytics, and tolerated the procedure well. Patient's head of the bed is elevated approximately 30. Dukes catheter is in place. The patient denies any pain. States he has improved feeling and sensation to the left lower extremity. He denies any acute changes through the night. Denies any bleeding from the right groin catheter site. He is able to move bilateral lower extremities and toes. He denies any shortness of breath or chest pain. He is nothing by mouth since 8 AM, and will return to the CV[facility] later this afternoon with Dr. Dukes for angiogram. Objective - Vital Signs Vital signs: Vital Signs Temp 98.1 F 10/22/19 08:00 Pulse 68 10/22/19 10:00 Resp 19 10/22/19 10:00 BP 101/73 10/22/19 10:00 Pulse Ox 93 L 10/22/19 10:00 Intake & Output 10/21/19 10/22/19 10/22/19 18:59 06:59 18:59 Intake Total 1371.583 996.847 300 Output Total 2044 2064 560 Balance -673.417 -1068.153 -260 Weight 93.7 kg Intake: IV 950 900 300 Sodium Chloride 0.9% 1, 750 900 300 000 ml @ 75 mls/hr IV . [id number] [facility] Rx#:[id number] Intake, IV Titration 21.583 96.847 Amount Alteplase 10 mg In Sodium 24.667 Chloride 0.9% 100 ml @ 1 MG/HR 10 mls/hr IA .Q10H [facility] Rx#:[id number] Heparin Sod,Pork in 0.45% 21.583 72.18 NaCl 25,000 unit In 0.45 % NaCl 1 250ml.bag @ 18 UNITS/KG/HR 17.064 mls/hr IV .[id number] [facility] Rx#: [id number] Oral 400 Output: Urine 1794 2064 560 Estimated Blood Loss 250 Other: Voiding Method Indwelling Catheter Indwelling Catheter Indwelling Catheter - Exam General appearance: The patient is alert, oriented, in no acute distress. HET: Head is normocephalic and atraumatic. Pupils are equal and reactive. Oropharynx is clear without lesions. Neck: Supple without lymphadenopathy. Trachea midline. Heart: S1 S2. Regular rate and rhythm. Lungs: No crackles or wheezes are heard. Abdomen: Soft, nontender, nondistended with bowel sounds. No peritoneal signs. No palpable organomegaly or masses. Extremities: Normal skin color and turgor. No cyanosis, rash, ulceration, clubbing, or edema. Bilateral palpable femoral, popliteal, and PT pulses. Right DP with positive multiphasic doppler signal. Right groin site without active bleeding, no hematoma noted. Neurological: No focal deficits. Strength and sensation are grossly intact. - Labs CBC & Chem 7: 10/22/19 11:56 10/22/19 04:52 Labs: Abnormal Lab Results - Last 24 Hours (Table) 10/21/19 10/21/19 10/21/19 Range/Units 11:48 17:19 17:19 RBC (4.30-5.90) m/uL Hgb (13.0-17.5) gm/dL Hct (39.0-53.0) % APTT 34.8 H (22.0-30.0) sec BUN 23 H (9-20) mg/dL POC Glucose (mg/dL) 151 H (75-99) mg/dL 10/21/19 10/21/19 10/21/19 Range/Units 17:38 20:10 20:26 RBC (4.30-5.90) m/uL Hgb 12.6 L (13.0-17.5) gm/dL Hct (39.0-53.0) % APTT (22.0-30.0) sec BUN (9-20) mg/dL POC Glucose (mg/dL) 124 H 203 H (75-99) mg/dL 10/21/19 10/21/19 10/21/19 Range/Units 20:26 23:20 23:20 RBC 4.23 L (4.30-5.90) m/uL Hgb 12.8 L (13.0-17.5) gm/dL Hct 37.2 L (39.0-53.0) % APTT 171.9 H* 42.0 H (22.0-30.0) sec BUN (9-20) mg/dL POC Glucose (mg/dL) (75-99) mg/dL 10/22/19 10/22/19 10/22/19 Range/Units 04:52 04:52 06:45 RBC (4.30-5.90) m/uL Hgb 12.7 L (13.0-17.5) gm/dL Hct 38.9 L (39.0-53.0) % APTT 53.2 H (22.0-30.0) sec BUN (9-20) mg/dL POC Glucose (mg/dL) 110 H (75-99) mg/dL Assessment and Plan Assessment: #1 acute ischemia left lower extremity #2 acute femoral artery occlusion, status post angiogram and initiation of thrombolytic #3 left lower extremity pain secondary to above #4 coronary artery disease, history of [place] with stent placement #5 hyperlipidemia #6 hypertension #7 diabetes Plan: The patient is scheduled to return to the cardiovascular lab with Dr. Dukes this afternoon for repeat angiogram. Keep nothing by mouth until after procedure. He is scheduled to undergo transthoracic echocardiogram, and will likely require further workup for thromboembolic disease. Further recommendations to follow. The above dictated assessment and findings were discussed with Dr. Dukes. The impression and plan of care have been directed as dictated.
[2019-10-22 17:04] LABS: Glucose,Whole Blood 101 mg/dL (75-99)
[2019-10-22] MEDS: METOPROLOL TARTRATE 25 MG TAB PO SCH ×2 (18:39→22:11)
[2019-10-22 21:05] LABS: Glucose,Whole Blood 164 mg/dL (75-99)
[2019-10-22] MEDS: ASPIRIN 81 MG PO SCH (22:11)
[2019-10-22] MEDS: ATORVASTATIN 40 MG TAB PO SCH (22:11)
[2019-10-23 05:46] LABS: Basophils % (A) 0 %; Eosinophils # (A) 0.2 k/uL (0-0.7); Eosinophils % (A) 3 %; HCT 38.7 % (39.0-53.0); HGB 12.8 gm/dL (13.0-17.5); Lymphocytes # (A) 1.1 k/uL (1.0-4.8); Lymphocytes % (A) 18 %; MCHC 33.2 g/dL (31.0-37.0); MCV 87.3 fL (80.0-100.0); Mean Platelet Volume 6.9; Monocytes # (A) 0.3 k/uL (0-1.0); Monocytes % (A) 4 %; Neutrophils # (A) 4.8 k/uL (1.3-7.7); Neutrophils % (A) 75 %; Platelet Count 276 k/uL (150-450); RBC 4.43 m/uL (4.30-5.90); WBC 6.4 k/uL (3.8-10.6)
[2019-10-23 06:22] LABS: African American GFR (CKD) >90 (>60 ml/min/1.73 sqM); Anion Gap 8 mmol/L; Blood Urea Nitrogen 19 mg/dL (9-20); Calcium 9.2 mg/dL (8.4-10.2); Carbon Dioxide 23 mmol/L (22-30); Chloride 104 mmol/L (98-107); Glucose 127 mg/dL (74-99); Non-African American GFR(CKD) 81 (>60 ml/min/1.73 sqM); Potassium 4.5 mmol/L (3.5-5.1); Sodium 135 mmol/L (137-145)
[2019-10-23] MEDS: HEPARIN SOD,PORK IN 0.45% NACL 25,000 UNIT in 0.45% NACL 1 250ML.BAG IV SCH (06:25)
[2019-10-23 07:34] LABS: Glucose,Whole Blood 129 mg/dL (75-99)
[2019-10-23] MEDS: INSULIN ASPART (NovoLOG) 100 UNIT/ML VIAL SQ SCH ×4 (07:35→21:51)
[2019-10-23] MEDS: GLIMEPIRIDE 1 MG TAB PO SCH ×2 (07:37→17:04)
[2019-10-23] MEDS: LISINOPRIL-HCTZ 20-12.5 MG 1 EACH TAB PO SCH (08:24)
[2019-10-23] MEDS: PANTOPRAZOLE 40 MG/10 ML VIAL IV SCH (08:24)
[2019-10-23] MEDS: METOPROLOL TARTRATE 25 MG TAB PO SCH (08:24)
[2019-10-23 11:32] LABS: Glucose,Whole Blood 150 mg/dL (75-99)
--- NOTE | 2019-10-23 12:52 | P.PN ---
Subjective Progress Note Date: 10/23/19 Patient seen and evaluated lying in bed in the ICU. No acute changes through the night. He is status post angiogram via existing catheter to left lower extremity, status post previous initiation of thrombolytics. He denies any pain, has increased feeling and movement to the left lower extremity. Denies any bleeding from the right groin site. He still has indwelling Dukes catheter. Tolerating his diet well. Objective - Vital Signs Vital signs: Vital Signs Temp 98 F 10/23/19 08:00 Pulse 61 10/23/19 08:00 Resp 16 10/23/19 08:00 BP 108/82 10/23/19 08:00 Pulse Ox 97 10/23/19 08:00 Intake & Output 10/22/19 10/23/19 10/23/19 18:59 06:59 18:59 Intake Total 1170.17 1584.931 75 Output Total 1560 1680 135 Balance -389.83 -95.069 -60 Weight 91.5 kg Intake: IV 1000 900 75 Sodium Chloride 0.9% 1, 900 900 75 000 ml @ 75 mls/hr IV . [id number] [facility] Rx#:[id number] Intake, IV Titration 170.17 184.931 Amount Heparin Sod,Pork in 0.45% 170.17 184.931 NaCl 25,000 unit In 0.45 % NaCl 1 250ml.bag @ 10.5 UNITS/KG/HR 9.996 mls/hr IV .Q24H [facility] Rx#: [id number] Oral 500 Output: Urine 1560 1680 135 Other: Voiding Method Indwelling Catheter Indwelling Catheter - Exam General appearance: The patient is alert, oriented, in no acute distress. HET: Head is normocephalic and atraumatic. Pupils are equal and reactive. Neck: Supple without lymphadenopathy. Trachea midline. Heart: S1 S2. Regular rate and rhythm. Lungs: No crackles or wheezes are heard. Abdomen: Soft, nontender, nondistended with bowel sounds. Extremities: Normal skin color and turgor. No cyanosis, rash, ulceration, clubbing, or edema. Bilateral palpable femoral, popliteal, and PT pulses. Palpable right DP pulse. Left DP with multiphasic signal. Right groin site without active bleeding, no hematoma noted. Sensorimotor intact bilaterally. Neurological: No focal deficits. Strength and sensation are grossly intact. - Labs CBC & Chem 7: 10/23/19 05:21 10/23/19 05:21 Labs: Abnormal Lab Results - Last 24 Hours (Table) 10/22/19 10/22/19 10/22/19 Range/Units 11:56 12:00 12:20 Hgb 12.4 L (13.0-17.5) gm/dL Hct 38.9 L (39.0-53.0) % APTT 42.7 H (22.0-30.0) sec Sodium (137-145) mmol/L Glucose (74-99) mg/dL POC Glucose (mg/dL) 136 H (75-99) mg/dL 10/22/19 10/22/19 10/22/19 Range/Units 17:03 21:03 22:29 Hgb (13.0-17.5) gm/dL Hct (39.0-53.0) % APTT 40.6 H (22.0-30.0) sec Sodium (137-145) mmol/L Glucose (74-99) mg/dL POC Glucose (mg/dL) 101 H 164 H (75-99) mg/dL 10/23/19 10/23/19 10/23/19 Range/Units 05:21 05:21 05:21 Hgb 12.8 L (13.0-17.5) gm/dL Hct 38.7 L (39.0-53.0) % APTT 66.3 H (22.0-30.0) sec Sodium 135 L (137-145) mmol/L Glucose 127 H (74-99) mg/dL POC Glucose (mg/dL) (75-99) mg/dL 10/23/19 Range/Units 07:32 Hgb (13.0-17.5) gm/dL Hct (39.0-53.0) % APTT (22.0-30.0) sec Sodium (137-145) mmol/L Glucose (74-99) mg/dL POC Glucose (mg/dL) 129 H (75-99) mg/dL Assessment and Plan Assessment: #1 acute ischemia left lower extremity #2 acute femoral artery occlusion, status post angiogram and initiation of thrombolytic #3 left lower extremity pain secondary to above #4 coronary artery disease, history of [place] with stent placement #5 hyperlipidemia #6 hypertension #7 diabetes Plan: Continue heparin drip. Discontinue Dukes catheter, if unable to void within 6 hours please do bladder scan. Increase activity as tolerated. Awaiting echoc ardiogram results. Appreciate recommendations per cardiology. Further recommendations to follow. The above dictated assessment and findings were discussed with Dr. Dukes. The impression and plan of care have been directed as dictated.
--- NOTE | 2019-10-23 13:03 | P.PN ---
Subjective Progress Note Date: 10/23/19 Principal diagnosis: Acute ischemic left lower extremity 62-year-old male patient presented emergency with acute onset left lower extremity pain and loss in sensation. His motor function was intact. CT imaging revealed occlusion of the artery at the level of the common femoral artery and thrombus throughout the superficial femoral artery. The patient was taken to the Thermodynamics Professor and the patient underwent ultrasound-guided right common femoral artery access with insertion of a catheter and initiation of thrombolytic treatment. Following that, the patient was brought into the intensive care unit where frequent monitoring revealed that he started to regain some pulses in his dorsalis pedis and this morning there are Doppler signals. The patient is going to be taken back to the left for reevaluation today. He is doing well. He has no specific complaints. He has no history of any claudication or peripheral vascular disease pain no carotid artery disease. He can recall a remote history of [place] many years back. Does not see a director database. He is a nonsmoker. He has hyperlipidemia. He also has hypertension. He takes metformin for diabetes mellitus. Patient was reevaluated today on 10/22/19, remains in the ICU, patient is scheduled to undergo again left lower extremity angiogram via existing catheter, possible mechanical thrombectomy and suction. And possibly reinitiation of TPA thrombolysis. In the meantime the patient continues to do well, feeling better, denies any complaints. He is presently on heparin, and he will be taken down to the OR for angiogram shortly after my evaluation. Labs were noted to be unremarkable. And his PTT was 42.7 Patient was reevaluated today on , patient remains in the ICU, doing quite well, asymptomatic, remains on heparin, patient is being considered for possible TASIA, the exact source of his embolic phenomenon is not clear yet. In the meantime patient will be downgraded and will be transferred to selective. His blood flow to the left lower extremity is significantly improved since his thrombectomy and TPA given yesterday. His IV fluid is at 75 mL per hour. Patient is on room air, and he denies any shortness of breath. He is hemodynamically stable. PTT is therapeutic at 59. CBC is relatively normal and basic metabolic profile is normal Objective - Vital Signs Vital signs: Vital Signs Temp 98 F 10/23/19 08:00 Pulse 61 10/23/19 08:00 Resp 16 10/23/19 08:00 BP 108/82 10/23/19 08:00 Pulse Ox 97 10/23/19 08:00 Intake & Output 10/22/19 10/23/19 10/23/19 18:59 06:59 18:59 Intake Total 1170.17 1584.931 390 Output Total 1560 1680 385 Balance -389.83 -95.069 5 Weight 91.5 kg Intake: IV 1000 900 150 Sodium Chloride 0.9% 1, 900 900 150 000 ml @ 75 mls/hr IV . [id number] [facility] Rx#:[id number] Intake, IV Titration 170.17 184.931 Amount Heparin Sod,Pork in 0.45% 170.17 184.931 NaCl 25,000 unit In 0.45 % NaCl 1 250ml.bag @ 10.5 UNITS/KG/HR 9.996 mls/hr IV .Q24H [facility] Rx#: [id number] Oral 500 240 Output: Urine 1560 1680 385 Other: Voiding Method Indwelling Catheter Indwelling Catheter Indwelling Catheter - Exam Physical Exam: Revealed 64-year-old white male in no form of distress. On room air. Head: Atraumatic, normocephalic. HEENT:[Neck is supple.] [No neck masses.] [No thyromegaly.] [No JVD.] Chest: [Clear throughout, no crackles, no rhonchi, no wheezes.] Cardiac Exam: [Normal S1 and S2, no S3 gallop, no murmur.] Abdomen: [Soft, nontender, no megaly, no rebound, no guarding, normal bowel sounds.] Extremities: [No clubbing, no edema, no cyanosis.] Palpable pulses bilaterally. Neurological Exam: [No focal neurologic deficit.] Alert oriented 3. Psychiatric: Normal mood affect and normal mental status examination. Skin: No rashes - Labs CBC & Chem 7: 10/23/19 05:21 10/23/19 05:21 Labs: Abnormal Lab Results - Last 24 Hours (Table) 10/22/19 10/22/19 10/22/19 Range/Units 12:00 17:03 21:03 Hgb (13.0-17.5) gm/dL Hct (39.0-53.0) % APTT 42.7 H (22.0-30.0) sec Sodium (137-145) mmol/L Glucose (74-99) mg/dL POC Glucose (mg/dL) 101 H 164 H (75-99) mg/dL 10/22/19 10/23/19 10/23/19 Range/Units 22:29 05:21 05:21 Hgb 12.8 L (13.0-17.5) gm/dL Hct 38.7 L (39.0-53.0) % APTT 40.6 H (22.0-30.0) sec Sodium 135 L (137-145) mmol/L Glucose 127 H (74-99) mg/dL POC Glucose (mg/dL) (75-99) mg/dL 10/23/19 10/23/19 10/23/19 Range/Units 05:21 07:32 11:31 Hgb (13.0-17.5) gm/dL Hct (39.0-53.0) % APTT 66.3 H (22.0-30.0) sec Sodium (137-145) mmol/L Glucose (74-99) mg/dL POC Glucose (mg/dL) 129 H 150 H (75-99) mg/dL 10/23/19 Range/Units 11:48 Hgb (13.0-17.5) gm/dL Hct (39.0-53.0) % APTT 59.1 H (22.0-30.0) sec Sodium (137-145) mmol/L Glucose (74-99) mg/dL POC Glucose (mg/dL) (75-99) mg/dL Assessment and Plan Assessment: Impression: Acute ischemic left lower extremity, status post insertion of right common femoral artery catheter and subsequent thrombolytic therapy. Postoperative day #3 Acute lactic acidosis secondary to above. Type 2 diabetes. Benign essential hypertension. Dyslipidemia. History of underlying coronary artery disease and previous [place]. Recommendation: Continue heparin. Cardiology to evaluate for possible TASIA, patient is also being considered for CT angiogram of the chest abdomen and pelvis. Continue tight control of his cardiovascular risks including hypertension and diabetes mellitus and dyslipidemia. Transfer patient out of the ICU to a monitor bed on selective. Will follow on when necessary basis. Time with Patient: Less than 30
[2019-10-23] MEDS ORDERED: NITROGLYCERIN OINT 1 INCH/GM PACKET TOPICAL SCH (16:00)
[2019-10-23 16:51] LABS: Glucose,Whole Blood 177 mg/dL (75-99)
--- NOTE | 2019-10-23 18:27 | PN ---
PROGRESS NOTE FOLLOW-UP NOTE: This patient is a 64-year-old gentleman with history of coronary artery disease, status post angioplasty, who is admitted to hospital with acute left leg ischemia. He underwent thrombectomy. This morning he is feeling fine. Does not have any foot pain. The pulses have improved. An echocardiogram on this admission revealed an ejection fraction of 45% to 50% with apical hypokinesis. The patient has history of prior [place] and cath and angioplasty. On exam today, he is comfortable at rest. Vital signs are stable. There is no jugular venous distention. Chest exam reveals good air entry bilaterally. Heart exam reveals first and second heart sounds. No gallop. Examination of extremities did not reveal any edema. The patient is on aspirin, Lipitor, Zestoretic, Lopressor, insulin and Protonix. Labs show that the hemoglobin is 12.8, platelet count is 276, potassium is 4.5, creatinine is 0.98. ASSESSMENT: 1. Acute left lower extremity ischemia secondary to femoral arterial occlusion, status post thrombectomy. 2. Coronary artery disease, status post angioplasty. 3. Ischemic cardiomyopathy. PLAN: Patient will continue current medications. We did not notice any thrombus within the left ventricle. MMODL / IJN: [id number] /
[2019-10-23 20:29] LABS: Glucose,Whole Blood 160 mg/dL (75-99)
[2019-10-23] MEDS: ASPIRIN 81 MG PO SCH (21:51)
[2019-10-23] MEDS: ATORVASTATIN 40 MG TAB PO SCH (21:51)
[2019-10-24] MEDS: HEPARIN SOD,PORK IN 0.45% NACL 25,000 UNIT in 0.45% NACL 1 250ML.BAG IV SCH (00:18)
[2019-10-24 04:43] LABS: Basophils % (A) 0 %; Eosinophils # (A) 0.1 k/uL (0-0.7); Eosinophils % (A) 2 %; HCT 35.3 % (39.0-53.0); HGB 11.6 gm/dL (13.0-17.5); Lymphocytes # (A) 1.2 k/uL (1.0-4.8); Lymphocytes % (A) 20 %; MCH 28.8 pg (25.0-35.0); MCV 87.4 fL (80.0-100.0); Mean Platelet Volume 7.3; Monocytes # (A) 0.3 k/uL (0-1.0); Monocytes % (A) 5 %; Neutrophils # (A) 4.5 k/uL (1.3-7.7); Neutrophils % (A) 72 %; Platelet Count 270 k/uL (150-450); RBC 4.04 m/uL (4.30-5.90); RDW 13.3 % (11.5-15.5); WBC 6.2 k/uL (3.8-10.6)
[2019-10-24 05:14] LABS: Potassium 4.6 mmol/L (3.5-5.1)
[2019-10-24 07:01] LABS: Glucose,Whole Blood 142 mg/dL (75-99)
[2019-10-24] MEDS: GLIMEPIRIDE 1 MG TAB PO SCH (07:03)
[2019-10-24] MEDS: INSULIN ASPART (NovoLOG) 100 UNIT/ML VIAL SQ SCH ×2 (07:04→12:25)
[2019-10-24] MEDS ORDERED: METOPROLOL TARTRATE 25 MG TAB PO SCH (09:00)
[2019-10-24] MEDS ORDERED: LISINOPRIL-HCTZ 20-12.5 MG 1 EACH TAB PO SCH (09:00)
[2019-10-24] MEDS ORDERED: PANTOPRAZOLE 40 MG TABLET PO SCH (09:00)
[2019-10-24] MEDS ORDERED: APIXABAN 5 MG TAB PO SCH (09:00)
--- NOTE | 2019-10-24 09:32 | ECHOF ---
Referral Reason:rule out cardiac clot MEASUREMENTS -------- HEIGHT: 188.0 cm WEIGHT: 94.8 kg BP: 112/70 RVIDd: 3.8 cm (< 3.3) IVSd: 1.3 cm (0.6 - 1.1) LVIDd: 4.9 cm (3.9 - 5.3) LVPWd: 1.3 cm (0.6 - 1.1) IVSs: 1.9 cm LVIDs: 3.2 cm LVPWs: 1.9 cm LA Diam: 3.9 cm (2.7 - 3.8) LAESV Index (A-L): 25.97 ml/m Ao Diam: 4.3 cm (2.0 - 3.7) AV Cusp: 2.8 cm (1.5 - 2.6) MV EXCURSION: 13.536 mm (> 18.000) MV EF SLOPE: 47 mm/s (70 - 150) EPSS: 0.2 cm MV E Anurag: 0.75 m/s MV DecT: 214 ms MV A Anurag: 0.61 m/s MV E/A Ratio: 1.22 AR PHT: 855 ms RAP: 5.00 mmHg RVSP: 28.35 mmHg FINDINGS -------- This was a technically difficult study with suboptimal apical views. The left ventricular size is normal. There is mild concentric left ventricular hypertrophy. Overa ll left ventricular systolic function is mildly impaired with, an EF between 45 - 50 %. Apical infe rior LV wall motion is hypokinetic. Apical septum LV wall motion is hypokinetic. The right ventricle is mild to moderately enlarged. Normal LA size by volume 22+/-6 ml/m2. The right atrium is normal in size. 4 ml of Lumason was utilized for enhancement of images. Interatrial and interventricular septum intact. There is mild aortic valve sclerosis. There is mild aortic regurgitation. The mitral valve is normal. Mild tricuspid regurgitation present. Right ventricular systolic pressure is normal at < 35 mmHg. The pulmonic valve was not well visualized. The aortic root size is normal. IVC Not well visulized. There is no pericardial effusion. CONCLUSIONS -------- 1. This was a technically difficult study with suboptimal apical views. 2. The left ventricular size is normal. 3. There is mild concentric left ventricular hypertrophy. 4. Overall left ventricular systolic function is mildly impaired with, an EF between 45 - 50 %. 5. Apical inferior LV wall motion is hypokinetic. 6. Apical septum LV wall motion is hypokinetic. 7. The right ventricle is mild to moderately enlarged. 8. Normal LA size by volume 22+/-6 ml/m2. 9. The right atrium is normal in size. 10. 4 ml of Lumason was utilized for enhancement of images. 11. Interatrial and interventricular septum intact. 12. There is mild aortic valve sclerosis. 13. There is mild aortic regurgitation. 14. The mitral valve is normal. 15. Mild tricuspid regurgitation present. 16. Right ventricular systolic pressure is normal at < 35 mmHg. 17. The pulmonic valve was not well visualized. 18. The aortic root size is normal. 19. IVC Not well visulized. 20. There is no pericardial effusion. RESEARCH PROJECT COORDINATOR: Sabina Melo RDCS
--- NOTE | 2019-10-24 10:07 | P.ARTDOP ---
Arterial Doppler LOWER EXTREMITY ARTERIAL DOPPLER: DATE OF SERVICE: 10/20/2019 Reason for study: Left leg pain. Doppler waveforms: Multiphasic throughout on the right. Multiphasic at the left femoral and no signals below. Pulse volume recording: []. Pressure gradients: Unable to get any pressure on the left. The right is normal.. Ankle-brachial indices: Greater than 1 on the right, not measurable on the left. Toe brachial indices: 0.7 to on the right, not measurable on the left Impression: Severe occlusive process on the left, probably acute. The right is normal.. Clinical correlation by vascular surgery in process.
--- NOTE | 2019-10-24 11:12 | P.PN ---
Subjective Progress Note Date: 10/24/19 Patient seen and evaluated at the bedside. Patient is still in the ICU however has been downgraded to selective. Patient is without any acute changes through the night. No new complaints. Cardiology is on consult with patient, awaiting echo results. Patient remained on a heparin drip through the night. Echocardiogram results still pending, however cardiology note by Dr. Pizano states he did not notice any thrombus within the left ventricle. Objective - Vital Signs Vital signs: Vital Signs Temp 98.8 F 10/24/19 04:00 Pulse 56 L 10/24/19 04:00 Resp 20 10/24/19 00:00 BP 94/70 10/24/19 04:00 Pulse Ox 96 10/24/19 04:00 Intake & Output 10/23/19 10/24/19 10/24/19 18:59 06:59 18:59 Intake Total 1230 424.727 Output Total 1185 1025 350 Balance 45 -600.273 -350 Weight 91.9 kg Intake: IV 750 120 .9 80 Sodium Chloride 0.9% 1, 750 40 000 ml @ 75 mls/hr IV . [id number] AIDAN Rx#:[id number] Intake, IV Titration 304.727 Amount Heparin Sod,Pork in 0.45% 304.727 NaCl 25,000 unit In 0.45 % NaCl 1 250ml.bag @ 10.5 UNITS/KG/HR 9.996 mls/hr IV .Q24H AIDAN Rx#: [id number] Oral 480 Output: Urine 1185 1025 350 Other: Voiding Method Indwelling Catheter Urinal - Exam General appearance: The patient is alert, oriented, in no acute distress. HET: Head is normocephalic and atraumatic. Pupils are equal and reactive. Neck: Supple without lymphadenopathy. Trachea midline. Heart: S1 S2. Regular rate and rhythm. Lungs: No crackles or wheezes are heard. Abdomen: Soft, nontender, nondistended with bowel sounds. Extremities: Normal skin color and turgor. No cyanosis, rash, ulceration, clubbing, or edema. Bilateral palpable femoral, popliteal, DP and PT pulses. Right groin site without active bleeding, no hematoma noted. Sensorimotor intact bilaterally. Neurological: No focal deficits. Strength and sensation are grossly intact. - Labs CBC & Chem 7: 10/24/19 03:52 10/24/19 03:52 Labs: Abnormal Lab Results - Last 24 Hours (Table) 10/23/19 10/23/19 10/23/19 Range/Units 11:31 11:48 16:50 RBC (4.30-5.90) m/uL Hgb (13.0-17.5) gm/dL Hct (39.0-53.0) % APTT 59.1 H (22.0-30.0) sec Sodium (137-145) mmol/L Glucose (74-99) mg/dL POC Glucose (mg/dL) 150 H 177 H (75-99) mg/dL 10/23/19 10/24/19 10/24/19 Range/Units 20:27 03:52 03:52 RBC 4.04 L (4.30-5.90) m/uL Hgb 11.6 L (13.0-17.5) gm/dL Hct 35.3 L (39.0-53.0) % APTT (22.0-30.0) sec Sodium 133 L (137-145) mmol/L Glucose 115 H (74-99) mg/dL POC Glucose (mg/dL) 160 H (75-99) mg/dL 10/24/19 10/24/19 Range/Units 03:52 06:59 RBC (4.30-5.90) m/uL Hgb (13.0-17.5) gm/dL Hct (39.0-53.0) % APTT 40.2 H (22.0-30.0) sec Sodium (137-145) mmol/L Glucose (74-99) mg/dL POC Glucose (mg/dL) 142 H (75-99) mg/dL Assessment and Plan Assessment: #1 acute ischemia left lower extremity #2 acute femoral artery occlusion, status post angiogram and initiation of thrombolytic #3 left lower extremity pain secondary to above #4 coronary artery disease, history of WI with stent placement #5 hyperlipidemia #6 hypertension #7 diabetes Plan: Discontinue heparin drip. Patient will be transitioned to Eliquis 5 mg twice a day. Will order CT angiogram of abdomen and pelvis along with CT angiogram of chest. Await echocardiogram results and further recommendations per cardiology. Possibility for discharge within the next 24 hours. Patient to follow-up with Dr. Dukes after discharge.
[2019-10-24 12:24] LABS: Glucose,Whole Blood 166 mg/dL (75-99)
--- NOTE | 2019-10-24 13:26 | CT ---
EXAMINATION TYPE: CT angio thor/abd pel aorta DATE OF EXAM: 10/24/2019 COMPARISON: Angiogram 10/22/2019 HISTORY: Acute ischemia left lower extremity, s/p angiogram CT DLP: 2096.8 mGycm. Automated Exposure Control for Dose Reduction was Utilized. CONTRAST: CT scan of the thoracic, abdominal, pelvic vasculature pre and post intravenous contrast without and with IV Contrast, patient injected with 100 mL of Isovue 370. FINDINGS: LUNGS: The lungs are remarkable for some probable basilar atelectatic changes, there may be some area s of scarring, parenchymal bands are noted There is no pleural effusion or pneumothorax seen. The tr acheobronchial tree is patent. MEDIASTINUM: There are no greater than 1 cm hilar or mediastinal lymph nodes. No pericardial effusi on is seen. The root of the aorta measures approximately 4 cm, ascending aorta measures 3.7 cm. There is no evide nt dissection, aneurysm, or embolus. Aorta, proximal super aortic vessels, celiac axis, superior mese nteric artery, renal arteries, inferior mesenteric artery, common iliac, internal and external iliac arteries, common femoral, deep and superficial femoral arteries are patent. At the right groin there is some increased attenuation within the soft tissues likely due to post angiogram change, ecchymosis . LIVER/GB: No significant abnormality is appreciated. PANCREAS: No significant abnormality is seen. SPLEEN: Calcifications are present, there may be underlying old granulomatous disease. ADRENALS: No s ignificant abnormality is seen. KIDNEYS: Large low dense foci scattered within both kidneys that likely represent cysts, anterior low dense foci in the left kidney lower pole may not represent a simple cyst, Hounsfield units are eleva layton. BOWEL: Retained fecal debris present throughout the distribution of the colon, correlate for fecal st asis. GENITAL ORGANS: The prostate is enlarged and shows associated calcification LYMPH NODES: No greater than 1cm abdominal or pelvic lymph nodes are appreciated. OSSEOUS STRUCTURES: Postop changes are noted to the lumbar spine, there is streak artifact due to pat ient's hardware, multilevel laminectomies OTHER: Urinary bladder shows a thickened wall which may be due to chronic outlet obstruction, correla te for possible cystitis IMPRESSION: The aorta and pelvic vasculature is patent. Findings in the right groin and additional fi ndings above as described. Low dense focus within the left kidney likely not a simple cyst, follow-up suggested.
--- NOTE | 2019-10-24 14:43 | PN ---
PROGRESS NOTE Eusebio is a 64-year-old gentleman who is admitted to the hospital with acute left leg ischemia. He is currently on aspirin, metformin, omeprazole, metoprolol, Zestoretic and insulin and his IV heparin is off and had been started on Eliquis. Echo shows mild LV dysfunction with apical hypokinesis. On exam, comfortable at rest. Vital signs are stable. There is no jugular venous distention. Chest exam reveals good air entry bilaterally. Heart exam reveals first and second heart sounds. No gallop. Exam of extremities did not reveal any edema. Peripheral pulses are diminished over the left foot. Palpable over the right. Coronavirus is negative. ASSESSMENT: 1. Acute arterial occlusion of the left lower extremity. 2. Coronary artery disease status post angioplasty. PLAN: Patient is doing well. He will continue with his current medications. Stable for discharge. MMODL / IJN: [id number] /
[2019-10-24 14:54] VITALS: BP 110/85; PULSE 59; RESP 14; TEMP 97
--- NOTE | 2019-10-24 23:13 | P.DS ---
Providers Date of admission: 10/20/19 13:41 Attending physician: Juan Fleming MD Consults: 10/20/19 13:53 Consult Physician Stat Consulting Provider: Maylin Dukes Consult Reason/Comments: Femoral artery occlusion Do you want consulting provider notified?: Already Contacted 10/20/19 17:08 Consult Physician Urgent Consulting Provider: Meño Pizano Consult Reason/Comments: ischemic leg , history of CAD ,s/p stent 7 years ago Do you want consulting provider notified?: Yes 10/20/19 17:27 Consult Physician Routine Consulting Provider: Yrn Shaffer Consult Reason/Comments: intensive care management Do you want consulting provider notified?: Yes Primary care physician: Esa Pittman Hospital Course: Diagnoses: Left leg acute ischemia to, to common femoral artery status post thrombolytic therapy and several angiogram by vascular surgery, with initiation of thrombocytic therapy and thrombectomy. Elevated lactic acid, came back to normal Hypertension Hyperlipidemia History of coronary artery disease status post stent about 7-10 years ago Hospital course: Hospital course: This is a pleasant 64 years old female with past medical history of hyperlipidemia, hypertension, type 2 diabetes and coronary artery disease status post stent and the heart about 7-10 years ago he follows all Dr. pittman at [facility] and his PCP is Dr. Pittman. Presents with left leg pain and decreased sensation which of one-day duration, with decreased sensation, coldness of the limb. CTA showing, femoral artery occlusion. Patient has been evaluated by vascular surgery, he was started on anticoagulation with heparin drip and he underwent several angiograms with thrombolytic therapy and some bulk to me [employer]ands[employer] Tender also evaluated the patient, echocardiogram: EF 45-50%, with apical inferior and apical septum LV wall motion hypokinesia. No thrombus is seen in the ventricle by hydroelectric mechanic. Patient was treated initially with heparin drip, R switched to oral Eliquis, his co-pay more than $400 and he agrees with the co-pay will go down as his intractable is expected to go down. This is going to follow-up with his hydroelectric mechanic and PCP for alternative but he says is okay now to be discharged with the Eliquis. [employer] T[employer] evaluated the patient and they could not find a thrombus in his left ventricular through the echocardiogram. Patient also underwent CT angiogram of aorta:no evidense of dissection , aneurysm or embolus as per radiologist , has contacted me stating she is clearing this pt for discharge patient's symptoms improved and on the day of discharge she denies chest pain or dyspnea, no leg pain or numbness, no difficulty walking. No change in urine or bowel habits. No fever Patient was cleared for discharge by cardiology and vascular surgery team is Problems and management plan were discussed with the patient and he verbalized understanding and acceptance Patient was found stable and can be discharged home however he needs follow-up as an outpatient. Patient was instructed to follow up with PCP Dr. pittman within one week and patient agrees. i talked to pt and at bed side about his appointment with on 10/25 at 2 pm and he agrees to f/u , also he agrees with appointment with , hydroelectric mechanic on 11/04 and will f/u as well. however office was closed and staff could not make appointment for him and he agrees to call and make appointment Patient was instructed to follow up with Dr. Dukes in 1-2 weeks and hydroelectric mechanic in 1-2 weeks as well, he verbalized understanding and acceptance Gen: patient is a AAOx3, no distress CVS: S1-S2, RRR, no murmur Lungs: B/L CTA, no wheezing Abdomen: soft, no distention, no tenderness, positive bowel sounds Extremity: no leg edema or induration Time spent more than 35 minutes Patient Condition at Discharge: Stable Plan - Discharge Summary Discharge Rx Participant: Yes New Discharge Prescriptions: New RX: Apixaban [Eliquis] 5 mg PO BID #60 tab RX: Metoprolol Tartrate [Lopressor] 25 mg PO DAILY #30 tab RX: Acetaminophen Tab [Tylenol] 650 mg PO Q6HR PRN tab PRN Reason: Mild Pain Or Fever > 100.5 RX: Aspirin 81 mg PO HS chew Continue RX: Ascorbic Acid [Vitamin C] 500 mg PO HS RX: Omeprazole 20 mg PO DAILY RX: Lisinopril-Hctz 20-12.5 mg [Zestoretic 20-12.5] 1 tab PO DAILY RX: Krill/Turpin-3/Dha/Epa/Lipids [Krill Oil 350 mg Softgel] 1 cap PO DAILY RX: Atorvastatin [Lipitor] 40 mg PO HS RX: Glimepiride [Amaryl] 1 mg PO BID-W/MEALS Discontinued Aspirin EC [Ecotrin Low Dose] 81 mg PO HS RX: metFORMIN HCL 1,000 mg PO BID Multivit-Min/FA/Lycopen/Lutein [Centrum Silver Men Tablet] 1 tab PO DAILY RX: Metoprolol Tartrate 25 mg PO BID Discharge Medication List RX: Ascorbic Acid [Vitamin C] 500 mg PO HS 10/20/19 [History] RX: Atorvastatin [Lipitor] 40 mg PO HS 10/20/19 [History] RX: Glimepiride [Amaryl] 1 mg PO BID-W/MEALS 10/20/19 [History] RX: Krill/Turpin-3/Dha/Epa/Lipids [Krill Oil 350 mg Softgel] 1 cap PO DAILY 10/20/19 [History] RX: Lisinopril-Hctz 20-12.5 mg [Zestoretic 20-12.5] 1 tab PO DAILY 10/20/19 [History] RX: Omeprazole 20 mg PO DAILY 10/20/19 [History] RX: Acetaminophen Tab [Tylenol] 650 mg PO Q6HR PRN tab 10/24/19 [Rx] RX: Apixaban [Eliquis] 5 mg PO BID #60 tab 10/24/19 [Rx] RX: Aspirin 81 mg PO HS chew 10/24/19 [Rx] RX: Metoprolol Tartrate [Lopressor] 25 mg PO DAILY #30 tab 10/24/19 [Rx] Follow up Appointment(s)/Referral(s): Esa Pittman MD [Primary Care Provider] - 10/26/19 2:20 pm (October 25 at 2:20 PM) Maylin Dukes DO [STAFF PHYSICIAN] - 2 Weeks (Call to make an appointment.) Meño Pizano MD [STAFF PHYSICIAN] - 11/05/19 11:30 am (October, At 1130.) Patient Instructions/Handouts: Deep Vein Thrombosis (DC), Peripheral Vascular Disease (DC) Activity/Diet/Wound Care/Special Instructions: Heart healthy diet Activity is limited till you see your doctor Discharge Disposition: HOME SELF-CARE
== END 2019-10-24 16:10 | disposition home or self-care (01) | DRG 271 ==
LOC: EC 09:34 → 3SCARD 13:41 → 2SICU 15:53
PROVIDERS: ADMIT Internal Medicine; ATTEND Internal Medicine
PROC: B41G1ZZ Fluoroscopy of Left Lower Extremity Arteries using Low Osmolar Contrast (ICD-10-PCS; 2019-10-20 15:14)
PROC: 3E05317 Introduction of Other Thrombolytic into Peripheral Artery, Percutaneous Approach (ICD-10-PCS; 2019-10-20 15:14)
PROC: 04CL3ZZ Extirpation of Matter from Left Femoral Artery, Percutaneous Approach (ICD-10-PCS; principal; 2019-10-21 14:00)
PROC: 3E05317 Introduction of Other Thrombolytic into Peripheral Artery, Percutaneous Approach (ICD-10-PCS; principal; 2019-10-21 14:00)
PROC: B41G1ZZ Fluoroscopy of Left Lower Extremity Arteries using Low Osmolar Contrast (ICD-10-PCS; 2019-10-22)
DX: I74.3 Embolism and thrombosis of arteries of the lower extremities (principal); E87.2 Acidosis; E78.5 Hyperlipidemia, unspecified; I10 Essential (primary) hypertension; I99.8 Other disorder of circulatory system; E11.51 Type 2 diabetes mellitus with diabetic peripheral angiopathy without gangrene; I25.5 Ischemic cardiomyopathy; I25.10 Atherosclerotic heart disease of native coronary artery without angina pectoris; Z11.59 Encounter for screening for other viral diseases; Z79.82 Long term (current) use of aspirin; Z79.84 Long term (current) use of oral hypoglycemic drugs; Z79.899 Other long term (current) drug therapy; Z95.5 Presence of coronary angioplasty implant and graft; I25.2 Old myocardial infarction
CPT/HCPCS: 36247; 36415; 37184; 37185; 37211; 37213; 37214; 71275; 74174; 75710; 76937; 80048; 80053; 82565; 83605; 84132; 84520; 85025; 85384; 85610; 85730; 86140; 86850; 86900; 86901; 93005; 93306; 93922; 96365; 96366; 96375; 96376; 99291

== ENCOUNTER 2019-10-27 19:33 | Emergency (ER) | payer MEDICARE, BC ==
[2019-10-27 19:51] VITALS: RESP 18; TEMP 98.4
--- NOTE | 2019-10-27 20:21 | ED ---
General Adult HPI - General Chief complaint: Recheck/Abnormal Lab/Rx Stated complaint: Post Op L Leg Pain Time Seen by Provider: 10/27/19 19:53 Source: patient, family Mode of arrival: wheelchair Limitations: no limitations - History of Present Illness Initial comments: 64-year-old male patient presents to the emergency department today for evaluation of left calf pain, left foot pain. Patient was discharged from the hospital on 09/24/2019 after being admitted for a femoral artery occlusion. While admitted patient underwent an angiogram with him back to in. He was started on anticoagulation with Eliquis. Patient states that over the last couple of days he has had increased pain in the calf and pain to the bottom of the foot especially with walking. Patient states he has been attempting to contact his surgeon given the weekend it has been difficult. He denies any numbness or tingling to the foot. Denies fever or chills. Denies any injury. He has been taking his medications as directed. Patient denies any headache, neck pain, back pain, chest pain, shortness of breath, dizziness, weakness, abdominal pain, nausea, vomiting, or difficulties with bowel movements or urination. - Related Data Home Medications Medication Instructions Recorded Confirmed Ascorbic Acid [Vitamin C] 500 mg PO HS 10/20/19 10/20/19 Atorvastatin [Lipitor] 40 mg PO HS 10/20/19 10/20/19 Glimepiride [Amaryl] 1 mg PO BID-W/MEALS 10/20/19 10/20/19 Krill/[place]-3/Dha/Epa/Lipids 1 cap PO DAILY 10/20/19 10/20/19 [Krill Oil 350 mg Softgel] Lisinopril-Hctz 20-12.5 mg 1 tab PO DAILY 10/20/19 10/20/19 [Zestoretic 20-12.5] Omeprazole 20 mg PO DAILY 10/20/19 10/20/19 Previous Rx's Medication Instructions Recorded Acetaminophen Tab [Tylenol] 650 mg PO Q6HR PRN tab 10/24/19 Apixaban [Eliquis] 5 mg PO BID #60 tab 10/24/19 Aspirin 81 mg PO HS chew 10/24/19 Metoprolol Tartrate [Lopressor] 25 mg PO DAILY #30 tab 10/24/19 Allergies Allergy/AdvReac Type Severity Reaction Status Date / Time No Known Allergies Allergy Verified 10/27/19 19:51 Review of Systems ROS Statement: Those systems with pertinent positive or pertinent negative responses have been documented in the HPI. ROS Other: All systems not noted in ROS Statement are negative. Past Medical History Past Medical History: Coronary Artery Disease (CAD), Hyperlipidemia, Hypertension, Myocardial Infarction ([place]), Vascular Disorder Last Myocardial Infarction Date:: 2010 History of Any Multi-Drug Resistant Organisms: None Reported Past Surgical History: Back Surgery Past Anesthesia/Blood Transfusion Reactions: No Reported Reaction Past Psychological History: No Psychological Hx Reported Smoking Status: Never smoker Past Alcohol Use History: None Reported Past Drug Use History: None Reported General Exam Limitations: no limitations General appearance: alert, in no apparent distress, other (This is a well- developed, well-nourished adult male patient in no acute distress. Vital signs upon presentation are temperature 98.4F, pulse 65, respirations 18, blood pressure 113/80, pulse ox 99% on room air.) Eye exam: Present: normal appearance, PERRL, EOMI. Absent: scleral icterus, conjunctival injection, periorbital swelling ENT exam: Present: normal exam, normal oropharynx, mucous membranes moist Respiratory exam: Present: normal lung sounds bilaterally. Absent: respiratory distress, wheezes, rales, rhonchi, stridor Cardiovascular Exam: Present: regular rate, normal rhythm, normal heart sounds. Absent: systolic murmur, diastolic murmur, rubs, gallop, clicks Extremities exam: Present: full ROM, normal capillary refill, other (There is soft tissue swelling noted to the left calf. There is healing ecchymosis over the jacobo. Skin is pink, warm, and dry. Cap refills less than 3 seconds. Post tibial pulses 2+ and palpable. Pedal pulse is found by Doppler but present.). Absent: normal inspection, tenderness, pedal edema, joint swelling, calf t enderness Neurological exam: Present: alert, oriented X3, CN II-XII intact Psychiatric exam: Present: normal affect, normal mood Skin exam: Present: warm, dry, intact, normal color. Absent: rash Course Vital Signs 10/27/19 10/27/19 19:49 22:12 Temperature 98.4 F Pulse Rate 65 67 Respiratory 18 18 Rate Blood Pressure 113/80 103/76 O2 Sat by Pulse 99 98 Oximetry Medical Decision Making - Medical Decision Making 64-year-old male patient presented to the emergency department today for evaluation of left calf and foot pain while walking. Patient recently underwent angiogram with thrombectomy to the left leg for femoral artery occlusion. Patient is currently taking Eliquis and was discharged a couple of days ago in good condition. Patient states over the last 24-48 hours he has been having increased pain with walking. States his leg may be a little more swollen than usual. Venous Doppler duplex was performed and showed no evidence for DVT but there is a possible small intramuscular hematoma in the calf. Patient is pain- free at rest. He has good neurovascular status. Post tibial pulses palpable, pedal pulses found with Doppler. Patient states that this is consistent with his status at time of discharge. He will be discharged to follow-up with Dr. Dukes. He is educated regarding signs or symptoms of worsening hematoma. Return parameters were discussed in detail. He verbalizes understanding and agrees with this plan. - Radiology Data Radiology results: report reviewed Ultrasound of the left lower extremity is obtained. Report was reviewed in its entirety. Impression by Dr. Jack shows no evidence of deep vein thrombosis in the left leg. There are small elongated fluid collection a could be a small intramuscular hematoma. Disposition Clinical Impression: Intramuscular hematoma, Pain of left calf Disposition: HOME SELF-CARE Condition: Good Instructions (If sedation given, give patient instructions): Hematoma (ED) Additional Instructions: Apply ice to the cath for pain relief. Continue your blood thinning medication. Follow-up with Dr. Dukes for further evaluation as soon as possible. Return to the emergency department immediately if her symptoms worsen or change. Is patient prescribed a controlled substance at d/c from ED?: No Referrals: Esa Palomino MD [Primary Care Provider] - 1-2 days Maylin Dukes DO [STAFF PHYSICIAN] - 1-2 days Time of Disposition: 21:40
--- NOTE | 2019-10-27 21:15 | US ---
EXAMINATION TYPE: US venous doppler duplex LE LT DATE OF EXAM: 10/27/2019 9:07 PM COMPARISON: NONE CLINICAL HISTORY: Left leg pain and swelling. Recent left lower leg arterial sx. On blood thinners. Patient states it hurts to walk. No swelling. No redness. SIDE PERFORMED: Left TECHNIQUE: The lower extremity deep venous system is examined utilizing real time linear array sonog barbara with graded compression, doppler sonography and color-flow sonography. VESSELS IMAGED: External Iliac Vein (EIV) Common Femoral Vein Deep Femoral Vein Greater Saphenous Vein * Femoral Vein Popliteal Vein Small Saphenous Vein * Proximal Calf Veins (* superficial vessels) Left Leg: Negative for DVT. Area of pain scanned at upper medial calf. Possible fluid collection v isualized at muscle = 2.2 x 1.6 x 0.5 cm IMPRESSION: No evidence of deep vein thrombosis in the left leg. There are small elongated fluid crow ection that could be a small intramuscular hematoma.
[2019-10-27 22:13] VITALS: BP 103/76; PULSE 67
== END 2019-10-27 22:13 | disposition home or self-care (01) ==
LOC: EC 19:33
DX: S80.12XA Contusion of left lower leg, initial encounter (principal); E78.5 Hyperlipidemia, unspecified; I25.10 Atherosclerotic heart disease of native coronary artery without angina pectoris; I10 Essential (primary) hypertension; I25.2 Old myocardial infarction; Z79.899 Other long term (current) drug therapy; Z79.01 Long term (current) use of anticoagulants; Z79.84 Long term (current) use of oral hypoglycemic drugs; Z98.890 Other specified postprocedural states
CPT/HCPCS: 99283

== ENCOUNTER 2020-01-23 10:16 | Day surgery (SDC) | payer MEDICARE, BC ==
[2020-01-22 09:07] VITALS: BMI 26.6
[~2020-01-23 10:16] MED LIST: LIDOCAINE 1% (10MG/ML) FOR IV START INTRADERMA PRN
[2020-01-23 10:56] VITALS: TEMP 97.8
[2020-01-23] MEDS: LACTATED RINGERS 1,000 ML IV SCH ×2 (10:56→12:02)
[2020-01-23 10:58] LABS: Glucose,Whole Blood 108 mg/dL (75-99)
[2020-01-23] MEDS ORDERED: LIDOCAINE 1% INJ 10MG/ML (20 ML MDV) ONE (12:03)
[2020-01-23] MEDS ORDERED: PROPOFOL 10 MG/ML 20 ML VIAL IV ONE (12:03)
--- NOTE | 2020-01-23 12:33 | P.PCN ---
Date of Procedure: 01/23/20 Procedure(s) Performed: Brief history: Patient is a pleasant 64-year-old white male scheduled for an elective upper endoscopy as well as colonoscopy as a part of evaluation of, GERD and screening for colorectal neoplasia Procedure performed: Esophagogastroduodenoscopy with biopsy Colonoscopy Preoperative diagnosis: GERD Screening for colon cancer Anesthesia: MAC Procedure: After informed consent was obtained from the patient was brought into the endoscopy unit and IV sedation was administered by anesthesia under continuous monitoring. Initially upper endoscopy was done. The Olympus GF 160 video endoscope was inserted inserted into the mouth and esophagus intubated without any difficulty and was gradually advanced into the stomach and duodenum and carefully examined. The bulb and second part of the duodenum appeared normal. The scope was then withdrawn into the stomach adequately insufflated with air and upon careful examination the antrum appeared normal. In the gastric body there were multiple gastric polyps measuring 1-2 cm in size which were biopsied. The body, cardia and fundus appeared normal. The scope was then withdrawn into the esophagus. The GE junction was located at 40 cm to the incisors. It appeared regular with no erythema erosions or ulcerations. Rest of the esophagus appeared normal. Patient tolerated the procedure well. At this time the patient continued to remain sedation. Initial digital rectal examination was normal. Olympus CF 160 video colonoscope was then inserted into the rectum and gradually advanced to the cecum without any difficulty. Careful examination was performed as the scope was gradually being withdrawn. The prep was excellent. The cecum, ascending colon, transverse colon, descending colon, sigmoid colon and rectum appeared normal. Retroflexion was performed in the rectum and small internal hemorrhoids were noted. Patient tolerated the procedure well. Impression: 1. Upper Endoscopy revealed multiple large gastric polyps in the gastric body status post biopsy and small hiatal hernia 2. Colonoscopy revealed small internal hemorrhoids but no evidence of colorectal neoplasia. Recommendations: Findings of this examination were discussed with the patient as well as his family. He was advised to follow with the biopsy results. He can have a repeat colonoscopy in 10 years.
[2020-01-23 12:35] VITALS: RESP 18
[2020-01-23 13:01] VITALS: BP 131/74; PULSE 52
== END 2020-01-23 13:33 | disposition home or self-care (01) ==
LOC: ORWHC2ENDO 10:16
PROVIDERS: ATTEND Internal Medicine Gastroenterology
DX: Z12.11 Encounter for screening for malignant neoplasm of colon (principal); K64.8 Other hemorrhoids; K21.9 Gastro-esophageal reflux disease without esophagitis; I25.10 Atherosclerotic heart disease of native coronary artery without angina pectoris; I51.9 Heart disease, unspecified; I25.2 Old myocardial infarction; Z86.718 Personal history of other venous thrombosis and embolism; E11.9 Type 2 diabetes mellitus without complications; E66.9 Obesity, unspecified; Z68.25 Body mass index [BMI] 25.0-25.9, adult; R13.10 Dysphagia, unspecified; Z79.01 Long term (current) use of anticoagulants; Z79.84 Long term (current) use of oral hypoglycemic drugs; Z79.899 Other long term (current) drug therapy
CPT/HCPCS: 88305; 43239; J2001; J2704; G0121; 45378

== ENCOUNTER → 2020-09-25 | Outpatient (CLI) | payer MEDICARE, BC ==
--- NOTE | 2020-09-25 17:02 | XR ---
EXAMINATION TYPE: XR chest 2V DATE OF EXAM: 09/25/2020 COMPARISON: None INDICATION: Lower chest pain TECHNIQUE: Frontal and lateral views of the chest are obtained. FINDINGS: The heart size is normal. The pulmonary vasculature is normal. The lungs are clear. IMPRESSION: 1. No acute pulmonary process.
--- NOTE | 2020-09-25 17:29 | XR ---
EXAMINATION TYPE: XR thoracic spine complete DATE OF EXAM: 09/25/2020 COMPARISON: None HISTORY: Back pain TECHNIQUE: 3 views thoracic spine FINDINGS: 11 thoracic type vertebral bodies are identified. Pedicles are intact. Spondylosis is prese nt. Mild diffuse disc changes are present. Scoliosis is present within the mid thoracic region. IMPRESSION: 1. Scoliosis with diffuse degenerative disc change.
--- NOTE | 2020-09-25 17:30 | XR ---
EXAMINATION TYPE: XR lumbar spine 2 or 3V DATE OF EXAM: 09/25/2020 COMPARISON: None HISTORY: Low back pain TECHNIQUE: 3 view lumbar spine FINDINGS: There 5 lumbar-type vertebral bodies. L1-L3 pedicles are intact. L4 and L5 as well as S1. Pedicle screws and fixation rods. Laminectomies been performed at L5 and L4. Posterior disc space quiana rowing is present L3-4. The L4-5 and L5-S1 disc heights are narrowed. Spondylosis is present. Incidental note is made of rudimentary ribs at T12. IMPRESSION: 1. Postsurgical changes of 4 through S1. 2. Degenerative disc changes posteriorly at L3-4.
== END | disposition home or self-care (01) ==
LOC: RADXRMAIN 15:25
PROVIDERS: ATTEND Family Medicine
DX: M51.36 Other intervertebral disc degeneration, lumbar region (principal); M41.9 Scoliosis, unspecified; M51.34 Other intervertebral disc degeneration, thoracic region; R07.89 Other chest pain
CPT/HCPCS: 71046; 72072; 72100

== ENCOUNTER → 2020-10-02 | Outpatient (CLI) | payer BC, MEDICARE ==
--- NOTE | 2020-10-02 08:24 | CT ---
EXAMINATION TYPE: CT lumbar spine wo con DATE OF EXAM: 10/02/2020 7:02 AM COMPARISON: Lumbar spine x-ray 09/25/2020. HISTORY: Back pain CT DLP: 868.6 mGycm Automated exposure control for dose reduction was used. Unenhanced CT of the lumbar spine was performed. Bone and soft tissue window settings are submitted as well as coronal and sagittal reconstructions. There are 5 lumbar-type vertebra. Posterior interpedicular rods and screws transfix L4-S1 levels bila terally. Laminectomy defects are spinous process resection at these levels noted. There is moderate d isc space narrowing and calcified disc at L5-S1 level. Moderate to severe disc space narrowing L4-L5 level. Slight grade 1 retrolisthesis L3 on L4 with mild posterior disc space narrowing is redemonstra layton. Prominent anterior spurring is redemonstrated. Vertebral body heights are maintained. Axial images show T12-L1, L1-L2, and L2-L3 levels all to appear within normal limits. Axial images at the L3-L4 level moderate broad disc protrusion effacing the anterior thecal sac. Ther e is mild to moderate facet arthropathy and ligament flavum hypertrophy effacing posterolateral theca l sac. There is mild bilateral anterior inferior neural foraminal narrowing. Axial images at L4-L5 level show bilateral laminectomy defects and spinous process resection. There i s metallic fixating hardware. Scar tissue surrounds spinal canal. Neural foramina felt patent on sagi ttal images. Axial images at L5-S1 level show right-sided laminectomy defect. Suspect right paracentral spur disc complex sagittal image 28 and axial images 69 and 70. Spinal canal may be mildly effaced. Moderate fa cet uropathy bilaterally. Mild to moderate left-sided neural foraminal narrowing. Patent right-sided neural foramina. There are thin-walled cysts of varying size and shape scattered throughout both kidneys with larger c ysts noted in the left kidney, majority only partially imaged. IMPRESSION: Postsurgical change L4-S1 level. Degenerative change L3-L4 level. Other findings as noted above.
--- NOTE | 2020-10-02 08:31 | CT ---
EXAMINATION TYPE: CT thoracic spine wo con DATE OF EXAM: 10/02/2020 COMPARISON: None. HISTORY: Back pain CT DLP: 841.0 mGycm Automated exposure control for dose reduction was used. FINDINGS: Thoracic spine show slight exaggerated kyphosis upper thoracic levels with more straightened appearan ce in the mid to lower thoracic spine. There is slight scoliotic curvature in the upper thoracic spin e. Vertebral body heights are maintained. Space heights are fairly well-preserved. There is fairly mo derate multilevel anterior and right lateral spurring in the mid to lower thoracic spine. Spinal faisal l grossly preserved. No large disc herniations are evident. Review of axial images shows calcified subcentimeter left hilar lymph nodes. There is mild left basil ar linear scarring. No large disc herniation is evident. IMPRESSION: As above.
== END | disposition home or self-care (01) ==
LOC: RADCTMAIN 06:28
PROVIDERS: ATTEND Family Medicine
DX: M47.816 Spondylosis without myelopathy or radiculopathy, lumbar region (principal); M51.36 Other intervertebral disc degeneration, lumbar region; M51.26 Other intervertebral disc displacement, lumbar region; M99.73 Connective tissue and disc stenosis of intervertebral foramina of lumbar region; M40.204 Unspecified kyphosis, thoracic region; M41.84 Other forms of scoliosis, thoracic region
CPT/HCPCS: 72128; 72131

== ENCOUNTER → 2021-04-16 | Outpatient (CLI) | payer MEDICARE | END | disposition home or self-care (01) | LOC: LABWHC1 12:24 | PROVIDERS: ATTEND Family Medicine | DX: U07.1 COVID-19 (principal) | CPT/HCPCS: 87502; U0003; C9803; U0005 ==